=== PATIENT | female | born 1935 | race Caucasian/White ===

== ENCOUNTER 2016-12-15 06:16 | Inpatient (IN) | payer MEDICARE, BC ==
[2016-12-15] MEDS ORDERED: Albuterol/Ipratropium 3.0-0.5 MG/3 ML Neb Soln NEB ONE (07:29)
[2016-12-15] MEDS ORDERED: methylPREDNISolone Sodium Succinate 125 MG/2 ML SDV IVPUSH ONE (07:30)
[2016-12-15] MEDS: Sodium Chloride 0.9% 10 ML Syringe FLUSH PRN ×4 (07:34→13:30)
--- NOTE | 2016-12-15 07:34 | EDM.PDOC ---
ED HPI GENERAL MEDICAL PROBLEM - General Chief Complaint: Respiratory Problem Stated Complaint: SOB Time Seen by Provider: 12/15/16 07:00 Source of Information: Reports: Patient, Family History Limitations: Reports: Physical Impairment, Respiratory Distress - History of Present Illness INITIAL COMMENTS - FREE TEXT/NARRATIVE: 81 years old w f with multiple medical issues including CHF, afib and COPD came to the ed by EMS due to worsening if SOB. Pt can usually walk 2 blocks but today only 1/2 block. She is talking full word sentences. No CP, No N/V. Pt has gen abd. discomfort as well, which is new. No trauma. Pt is on Lasix and coumadin. BP 157/47. Puls 94, Pulse ox 94 on RA. Pt denies other acute medical issues. 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, Oxygen - Related Data Allergies Allergy/AdvReac Type Severity Reaction Status Date / Time ciprofloxacin Allergy Cannot Verified 12/15/16 11:20 Remember cortisone [Cortisone] Allergy Cannot Verified 12/15/16 11:20 Remember fenofibrate nanocrystallized Allergy Cannot Verified 12/15/16 11:20 [From Tricor] Remember fenofibrate,micronized Allergy Cannot Verified 12/15/16 11:20 [From Tricor] Remember levofloxacin [From Levaquin] Allergy Cannot Verified 12/15/16 11:20 Remember lisinopril Allergy Hives Verified 12/15/16 11:20 morphine Allergy Disorientat Verified 12/15/16 11:20 ion niacin Allergy Cannot Verified 12/15/16 11:20 Remember Penicillins Allergy Cannot Verified 12/15/16 11:20 Remember quinapril HCl [From Accupril] Allergy Cannot Verified 12/15/16 11:20 Remember Sulfa (Sulfonamide Allergy Itching Verified 12/15/16 11:20 Antibiotics) zolpidem tartrate Allergy Cannot Verified 12/15/16 11:20 [From Ambien] Remember Home Meds: Home Meds Calcitriol [Rocaltrol] 0.25 mcg PO DAILY 06/24/15 [History] Gabapentin [Neurontin] 100 mg PO BEDTIME 06/24/15 [History] Polyvinyl Alcohol/Povidone [Artificial Tears Drops] 1 drop EYEBOTH QID PRN 06/23 [History] Acetaminophen [Tylenol Extra Strength] 500 mg PO Q4H PRN 09/01/15 [History] Aspirin [Adult Low Dose Aspirin EC] 81 mg PO BEDTIME 09/01/15 [History] Citalopram Hydrobromide [Celexa] 10 mg PO DAILY 09/01/15 [History] Dextrose [Glucose] 12 gram PO Q1H PRN 09/01/15 [History] Ergocalciferol (Vitamin D2) [Vitamin D2] 50,000 units PO Q30D 09/01/15 [History] Insulin Glarg,Human.Rec.Analog [Lantus Solostar] 25 unit SUBCUT BEDTIME [History] Multivit-Min/FA/Lutein/Zeaxant [Macular Vitamin Tablet] 1 tab PO DAILY 09/01/15 [History] Omeprazole 40 mg PO ACBREAKFAST 09/01/15 [History] Simvastatin [Zocor] 20 mg PO DAILY 09/01/15 [History] Vit B Cmplx NO3/Fa/C/Biot/Zinc [Nephplex Rx] 1 tab PO DAILY 09/01/15 [History] amLODIPine [Norvasc] 5 mg PO DAILY 09/01/15 [History] traZODone 50 mg PO BEDTIME 09/01/15 [History] Metolazone 2.5 mg PO BID 09/02/15 [History] Acetaminophen [Tylenol] 650 mg PO Q4H PRN #0 tablet 09/03/15 [Rx] Allopurinol [Zyloprim] 100 mg PO DAILY #90 tablet 09/03/15 [Rx] Furosemide 80 mg PO BID #40 tablet 09/03/15 [Rx] Bimatoprost [Lumigan 0.01% Oph Soln] 1 drop EYEBOTH BEDTIME 12/15/16 [History] Ferrous Sulfate 325 mg PO DAILY 12/15/16 [History] Insulin Aspart [Novolog] 15 unit SQ TIDMEALS 12/15/16 [History] Levothyroxine 112 mcg PO ACBREAKFAST 12/15/16 [History] Potassium Chloride [Klor-Con M20] 20 meq PO TID 12/15/16 [History] Warfarin [Coumadin] 2 mg PO MO 12/15/16 [History] Warfarin [Coumadin] 4 mg PO SUTUWETHFRSA 12/15/16 [History] Past Medical History HEENT History: Reports: Cataract, Glaucoma Cardiovascular History: Reports: Heart Failure, High Cholesterol, CA, SOB on Exertion Respiratory History: Reports: COPD Gastrointestinal History: Reports: Cholelithiasis Genitourinary History: Reports: Chronic Renal Insuffiency, Diabetic Nephropathy MANAGER PAID History: Reports: Musculoskeletal History: Reports: Back Pain, Chronic Neurological History: Reports: CVA Psychiatric History: Reports: Depression Endocrine/Metabolic History: Reports: Diabetes, Type II, Hypoparathyroidism, Hypothyroidism Hematologic History: Reports: Blood Transfusion(s) - Infectious Disease History Infectious Disease History: Reports: Chicken Pox, Measles, Mumps, Pertussis ( Whooping Cough), Shingles, Other (See Below) Other Infectious Disease History: infectious hepatitis many years ago - Past Surgical History HEENT Surgical History: Reports: Cataract Surgery Cardiovascular Surgical History: Reports: Coronary Artery Bypass GI Surgical History: Reports: Appendectomy, Cholecystectomy Social & Family History - Family History HEENT: Reports: Impaired Vision Cardiac: Reports: Heart Failure, CA, SOB on Exertion GI: Reports: Cholelithiasis OBGYN: Reports: Neurological: Reports: CVA Psychiatric: Reports: Anxiety Endocrine/Metabolic: Reports: Diabetes, type II Oncologic: Reports: Colon, Other (See Below) Other Oncologic Family History: melanoma - Tobacco Use Smoking Status *Q: Never Smoker Years of Tobacco use: 20 Packs/Tins Daily: 0.5 Used Tobacco, but Quit: Yes Month Tobacco Last Used: Apr Second Hand Smoke Exposure: Yes - Caffeine Use Caffeine Use: Reports: Coffee - Alcohol Use Days Per Week of Alcohol Use: 0 - Recreational Drug Use Recreational Drug Use: No ED ROS GENERAL - Review of Systems Review Of Systems: See Below Constitutional: Reports: Weakness, Decreased Appetite, Weight Gain HEENT: Reports: No Symptoms Respiratory: Reports: Shortness of Breath Cardiovascular: Reports: Dyspnea on Exertion, Edema Endocrine: Reports: No Symptoms GI/Abdominal: Reports: Abdominal Pain (generalized) : Reports: No Symptoms Musculoskeletal: Reports: No Symptoms Skin: Reports: No Symptoms Neurological: Reports: Difficulty Walking Psychiatric: Reports: No Symptoms Hematologic/Lymphatic: Reports: No Symptoms Immunologic: Reports: No Symptoms ED EXAM, GENERAL - Physical Exam Exam: See Below Eye Exam: Right Eye: Other (periorbital cellulitis), Bilateral Eye: Normal Inspection Ears: Normal External Exam Ear Exam: Bilateral Ear: Auricle Normal Nose: Normal Inspection, Normal Mucosa, No Blood Throat/Mouth: Normal Inspection Head: Atraumatic, Normocephalic Neck: Normal Inspection, Supple Respiratory/Chest: Respiratory Distress, Decreased Breath Sounds, Crackles, Rhonchi, Prolonged Expiration Cardiovascular: Irregularly Irregular (rate controlled) Peripheral Pulses: 1+: Femoral (L), Femoral (R) GI/Abdominal: Tender (generalize) (Female) Exam: Deferred Rectal (Female) Exam: Deferred Back Exam: Normal Inspection Extremities: Pedal Edema, Slow Capillary Refill Neurological: Alert, Oriented, CN II-XII Intact, Normal Cognition Psychiatric: Normal Affect, Normal Mood Skin Exam: Pallor Lymphatic: No Adenopathy EKG INTERPRETATION EKG Date: 12/15/16 Time: 07:20 Rhythm: A-Fib [place]: Normal P-Wave: Absent QRS: Normal ST-T: Normal QT: Normal Comparison: No Change Course - Vital Signs Text/Narrative:: 81 years old w f with multiple medical issues including CHF, afib and COPD came to the ed by EMS due to worsening if SOB. Pt can usually walk 2 blocks but today only 1/2 block. She is talking full word sentences. No CP, No N/V. Pt has gen abd. discomfort as well, which is new. No trauma. Pt is on Lasix and coumadin. BP 157/47. Puls 94, Pulse ox 94 on RA. Pt denies other acute medical issues. family friend is present as per daughter, pt is DNR PE: Weak appearing WF, pale, crackles LLL of lung, S3, gen abdominal discomfort to palpation. Labs; BNP 350, INR 1.91 NL WBC Imaging: CXR CHF/COPD official report is pending ImpressionL: COPD, CHF (Pneumonia?) [place]; Lasix, Duoneb, Solumedrol Reexam: Improved Plan: Admit to ray m/s tele. Last Recorded V/S: Last Vital Signs Temp 36.7 C 12/15/16 19:30 Pulse 62 12/15/16 19:30 Resp 17 08/23/17 19:30 BP 135/61 12/15/16 19:30 Pulse Ox 94 L 12/15/16 19:30 - Orders/Labs/Meds Orders: Active Orders 24 hr Category Date Time Status Bedrest Bedside Commode [RC] ASDIRECTED Care 12/15/16 09:29 Active Oxygen Therapy [RC] PRN Care 12/15/16 09:29 Active RT Aerosol Therapy [RC] ASDIRECTED Care 12/15/16 07:30 Active Vital Signs [RC] Q4H Care 12/15/16 09:29 Active Sodium Chloride 0.9% [Saline Flush] Med 12/15/16 06:42 Active 10 ml FLUSH ASDIRECTED PRN Saline Lock Insert [OM.PC] Routine Oth 12/15/16 06:42 Ordered EKG 12 Lead [EK] Routine Ther 12/15/16 07:15 Ordered Medication Orders Acetaminophen (Tylenol Extra Strength) 500 mg PO Q4H PRN PRN Reason: Pain Albuterol (Proventil Neb Soln) 2.5 mg INH Q4H PRN PRN Reason: SHORTNESS OF BREATH Allopurinol (Zyloprim) 100 mg PO DAILY [facility] Last Admin: 12/15/16 12:06 Dose: 100 mg Amlodipine Besylate (Norvasc) 5 mg PO DAILY [facility] Last Admin: 12/15/16 12:07 Dose: 5 mg Artificial Tears (Liquitears 1.4% Ophth Soln) 0 ml EYEBOTH QID PRN PRN Reason: Dry Eyes Aspirin (Halfprin) 81 mg PO BEDTIME [facility] Last Admin: 12/15/16 20:14 Dose: 81 mg Bimatoprost (Lumigan 0.01% Ophth Soln) 0 ml EYEBOTH BEDTIME [facility] Last Admin: 12/15/16 20:18 Dose: Not Given Calcitriol (Rocaltrol) 0.25 mcg PO DAILY [facility] Last Admin: 12/15/16 12:19 Dose: 0.25 mcg Citalopram Hydrobromide (Celexa) 10 mg PO DAILY [facility] Last Admin: 12/15/16 12:07 Dose: 10 mg Dextrose (Glutose 15) 15 gm PO Q1H PRN PRN Reason: low blood sugar Ergocalciferol (Vitamin D2) 50,000 units PO Q30D [facility] Ferrous Sulfate (Ferrous Sulfate) 325 mg PO DAILY [facility] Last Admin: 12/15/16 12:07 Dose: 325 mg Furosemide (Lasix) 80 mg PO BIDDIURETIC [facility] Last Admin: 12/15/16 14:38 Dose: 80 mg Gabapentin (Neurontin) 100 mg PO BEDTIME [facility] Last Admin: 12/15/16 20:15 Dose: 100 mg Azithromycin 500 mg/ Sodium (Chloride) 250 mls @ 250 mls/hr IV Q24H [facility] Last Admin: 12/15/16 12:09 Dose: 250 mls/hr Ceftriaxone Sodium 1,000 mg/ (Sodium Chloride) 50 mls @ 100 mls/hr IV Q24H [facility] Last Admin: 12/15/16 11:15 Dose: 100 mls/hr Insulin Aspart (Novolog) 0 unit SUBCUT TIDMEALS [facility] PRN Reason: Protocol Last Admin: 12/15/16 18:40 Dose: 15 units Insulin Detemir (Levemir) 25 unit SUBCUT BEDTIME [facility] Last Admin: 12/15/16 22:28 Dose: 25 units Latanoprost (Xalatan 0.005% Ophth Soln) 0 ml EYEBOTH BEDTIME [facility] Last Admin: 12/15/16 20:17 Dose: 1 drop Levothyroxine Sodium (Levothyroxine) 112 mcg PO DAILY@0600 [facility] Metolazone (Zaroxolyn) 2.5 mg PO DAILY@0800 [facility] Last Admin: 12/15/16 13:43 Dose: 2.5 mg Multivit/Ca Carb/B Cmplx/FA/Prenat (Renal Caps Softgel) 1 cap PO DAILY [facility] Last Admin: 12/15/16 12:08 Dose: 1 cap Pantoprazole Sodium (Protonix) 40 mg PO 0600 [facility] Potassium Chloride (Klor-Con M20) 20 meq PO TID [facility] Last Admin: 12/15/16 20:15 Dose: 20 meq Admin: 12/15/16 13:44 Dose: 20 meq Simvastatin (Zocor) 20 mg PO DAILY [facility] Sodium Chloride (Saline Flush) 10 ml FLUSH ASDIRECTED PRN PRN Reason: Keep Vein Open Last Admin: 12/15/16 13:30 Dose: 10 ml Admin: 12/15/16 09:16 Dose: 10 ml Admin: 12/15/16 07:43 Dose: 10 ml Admin: 12/15/16 07:34 Dose: 10 ml Sodium Chloride (Saline Flush) 10 ml FLUSH ASDIRECTED PRN PRN Reason: Keep Vein Open Trazodone HCl (Trazodone) 50 mg PO BEDTIME [facility] Last Admin: 12/15/16 20:15 Dose: 50 mg Vit C/Vit E/Zinc/Copper/Lutein (Ocuvite Lutein) 1 each PO DAILY [facility] Warfarin Sodium (Coumadin) 2 mg PO MO [facility] Warfarin Sodium (Coumadin) 4 mg PO SUTUWETHFRSA [facility] Last Admin: 12/15/16 17:05 Dose: 4 mg Warfarin Sodium (Coumadin Sliding Scale) 1 each PO ASDIRECTED [facility] Labs: Laboratory Tests 12/15/16 12/15/16 12/15/16 Range/Units 07:25 07:25 07:25 WBC 9.1 (4.5-12.0) X10-3/uL RBC 4.47 (3.23-5.20) x10(6)uL Hgb 9.3 L (11.5-15.5) g/dL Hct 30.5 (30.0-51.3) % MCV 68.3 L (80-96) fL MCH 20.9 L (27.7-33.6) pg MCHC 30.5 L (32.2-35.4) g/dL RDW 20.9 H (11.5-15.5) % Plt Count 231 (125-369) X10(3)uL MPV 7.2 L (7.4-10.4) fL Add Manual Diff Yes Neutrophils % (Manual) 87 H (46-82) % Lymphocytes % (Manual) 6 L (13-37) % Monocytes % (Manual) 5 (4-12) % Eosinophils % (Manual) 1 (0-5) % Basophils % (Manual) 1 (0-2) % Hypochromasia Few Anisocytosis Moderate H Microcytosis Moderate H PT 20.2 H (8.7-11.1) INR 1.97 H (0.89-1.13) Sodium 136 (135-145) mmol/L Potassium 3.4 L D (3.5-5.3) mmol/L Chloride 98 L D (100-110) mmol/L Carbon Dioxide 28 (23-29) mmol/L BUN 50 H D (8-23) mg/dL Creatinine 1.3 (0.6-1.3) mg/dL Est Cr Clr Drug Dosing 29.31 mL/min Estimated GFR (MDRD) 39 L (>60) BUN/Creatinine Ratio 38.5 H (9-20) Glucose 187 H (80-116) mg/dL Calcium 9.0 (8.6-10.2) mg/dL Total Bilirubin 0.8 (0.1-1.3) mg/dL AST 22 (5-27) IU/L ALT 10 L D (14-26) IU/L Alkaline Phosphatase 75 (56-112) IU/L Troponin I (0.02-0.06) NG/ML B-Natriuretic Peptide (0-100) pg/mL Total Protein 6.2 (6.0-8.0) g/dL Albumin 3.1 L (3.2-4.6) g/dL Globulin 3.1 g/dL Albumin/Globulin Ratio 1.0 Urine Color (YELLOW) Urine Appearance (CLEAR) Urine pH (5.0-6.5) Ur Specific [place] (1.010-1.025) Urine Protein (NEGATIVE) mg/dL Urine Glucose (UA) (NEGATIVE) mg/dL Urine Ketones (NEGATIVE) mg/dL Urine Occult Blood (NEGATIVE) Urine Nitrite (NEGATIVE) Urine Bilirubin (NEGATIVE) Urine Urobilinogen (NEGATIVE) mg/dL Ur Leukocyte Esterase (NEGATIVE) Urine RBC (0) Urine WBC (0) Ur Squamous Epith Cells (NS,R,O) Urine Bacteria (NS) 12/15/16 12/15/16 12/15/16 Range/Units 07:25 07:25 08:05 WBC (4.5-12.0) X10-3/uL RBC (3.23-5.20) x10(6)uL Hgb (11.5-15.5) g/dL Hct (30.0-51.3) % MCV (80-96) fL MCH (27.7-33.6) pg MCHC (32.2-35.4) g/dL RDW (11.5-15.5) % Plt Count (125-369) X10(3)uL MPV (7.4-10.4) fL Add Manual Diff Neutrophils % (Manual) (46-82) % Lymphocytes % (Manual) (13-37) % Monocytes % (Manual) (4-12) % Eosinophils % (Manual) (0-5) % Basophils % (Manual) (0-2) % Hypochromasia Anisocytosis Microcytosis PT (8.7-11.1) INR (0.89-1.13) Sodium (135-145) mmol/L Potassium (3.5-5.3) mmol/L Chloride (100-110) mmol/L Carbon Dioxide (23-29) mmol/L BUN (8-23) mg/dL Creatinine (0.6-1.3) mg/dL Est Cr Clr Drug Dosing mL/min Estimated GFR (MDRD) (>60) BUN/Creatinine Ratio (9-20) Glucose (80-116) mg/dL Calcium (8.6-10.2) mg/dL Total Bilirubin (0.1-1.3) mg/dL AST (5-27) IU/L ALT (14-26) IU/L Alkaline Phosphatase (56-112) IU/L Troponin I < 0.01 L (0.02-0.06) NG/ML B-Natriuretic Peptide 350 H (0-100) pg/mL Total Protein (6.0-8.0) g/dL Albumin (3.2-4.6) g/dL Globulin g/dL Albumin/Globulin Ratio Urine Color Yellow (YELLOW) Urine Appearance Clear (CLEAR) Urine pH 6.0 (5.0-6.5) Ur Specific [place] 1.010 (1.010-1.025) Urine Protein Negative (NEGATIVE) mg/dL Urine Glucose (UA) Normal (NEGATIVE) mg/dL Urine Ketones Negative (NEGATIVE) mg/dL Urine Occult Blood Negative (NEGATIVE) Urine Nitrite Negative (NEGATIVE) Urine Bilirubin Negative (NEGATIVE) Urine Urobilinogen Normal (NEGATIVE) mg/dL Ur Leukocyte Esterase Negative (NEGATIVE) Urine RBC 0-5 (0) Urine WBC 5-10 (0) Ur Squamous Epith Cells Rare (NS,R,O) Urine Bacteria Not seen (NS) Meds: Medications Generic Name Dose Route Start Last Admin Trade Name Freq PRN Reason Stop Dose Admin Acetaminophen 500 mg 12/15/16 10:00 Tylenol Extra Strength PO Q4H PRN Pain Albuterol 2.5 mg 12/15/16 13:00 Proventil Neb Soln INH Q4H PRN SHORTNESS OF BREATH Allopurinol 100 mg 12/15/16 09:00 12/15/16 12:06 Zyloprim PO 100 mg DAILY [facility] Administration Amlodipine Besylate 5 mg 12/15/16 11:00 12/15/16 12:07 Norvasc PO 5 mg DAILY [facility] Administration Artificial Tears 0 ml 12/15/16 10:00 Liquitears 1.4% Oph Soln EYEBOTH QID PRN Dry Eyes Aspirin 81 mg 12/15/16 21:00 12/15/16 20:14 Halfprin PO 81 mg BEDTIME [facility] Administration Bimatoprost 0 ml 12/15/16 21:00 12/15/16 20:18 Lumigan 0.01% Ophth Soln EYEBOTH Not Given BEDTIME [facility] Calcitriol 0.25 mcg 12/15/16 11:00 12/15/16 12:19 Rocaltrol PO 0.25 mcg DAILY [facility] Administration Citalopram Hydrobromide 10 mg 12/15/16 11:00 12/15/16 12:07 Celexa PO 10 mg DAILY [facility] Administration Dextrose 15 gm 12/15/16 10:00 Glutose 15 PO Q1H PRN low blood sugar Ergocalciferol 50,000 units 12/26/16 08:00 Vitamin D2 PO Q30D [facility] Ferrous Sulfate 325 mg 12/15/16 11:00 12/15/16 12:07 Ferrous Sulfate PO 325 mg DAILY [facility] Administration Furosemide 80 mg 12/15/16 14:00 12/15/16 14:38 Lasix PO 80 mg BIDDIURETIC [facility] Administration Gabapentin 100 mg 12/15/16 21:00 12/15/16 20:15 Neurontin PO 100 mg BEDTIME [facility] Administration Azithromycin 500 mg/ Sodium 250 mls @ 250 mls/hr 12/15/16 12:00 12/15/16 12: 09 Chloride IV 250 mls/hr Q24H [facility] Administration Ceftriaxone Sodium 1,000 mg/ 50 mls @ 100 mls/hr 12/15/16 10:00 12/15/16 11: 15 Sodium Chloride IV 100 mls/hr Q24H [facility] Administration Insulin Aspart 0 unit 12/15/16 18:00 12/15/16 18:40 Novolog SUBCUT 15 units TIDMEALS [facility] Administration Protocol Insulin Detemir 25 unit 12/15/16 21:00 12/15/16 22:28 Levemir SUBCUT 25 units BEDTIME [facility] Administration Latanoprost 0 ml 12/15/16 21:00 12/15/16 20:17 Xalatan 0.005% Ophth Soln EYEBOTH 1 drop BEDTIME [facility] Administration Levothyroxine Sodium 112 mcg 12/16/16 06:00 Levothyroxine PO DAILY@0600 [facility] Metolazone 2.5 mg 12/15/16 13:30 12/15/16 13:43 Zaroxolyn PO 2.5 mg DAILY@0800 [facility] Administration Multivit/Ca Carb/B Cmplx/FA/Prenat 1 cap 12/15/16 11:15 12/15/16 12:08 Renal Caps Softgel PO 1 cap DAILY [facility] Administration Pantoprazole Sodium 40 mg 12/16/16 06:00 Protonix PO 0600 [facility] Potassium Chloride 20 meq 12/15/16 14:00 12/15/16 20:15 Klor-Con M20 PO 20 meq TID [facility] Administration Simvastatin 20 mg 12/16/16 09:00 Zocor PO DAILY [facility] Sodium Chloride 10 ml 12/15/16 06:42 12/15/16 13:30 Saline Flush FLUSH 10 ml ASDIRECTED PRN Administration Keep Vein Open Sodium Chloride 10 ml 12/15/16 09:56 Saline Flush FLUSH ASDIRECTED PRN Keep Vein Open Trazodone HCl 50 mg 12/15/16 21:00 12/15/16 20:15 Trazodone PO 50 mg BEDTIME [facility] Administration Vit C/Vit E/Zinc/Copper/Lutein 1 each 12/16/16 09:00 Ocuvite Lutein PO DAILY [facility] Warfarin Sodium 2 mg 12/20/16 16:00 Coumadin PO MO [facility] Warfarin Sodium 4 mg 12/15/16 16:00 12/15/16 17:05 Coumadin PO 4 mg SUTUWETHFRSA [facility] Administration Warfarin Sodium 1 each 12/15/16 15:45 Coumadin Sliding Scale PO ASDIRECTED [facility] Discontinued Medications Generic Name Dose Route Start Last Admin Trade Name Freq PRN Reason Stop Dose Admin Albuterol Confirm 12/15/16 13:12 12/15/16 13:18 Proventil Neb Soln Administered 12/15/16 13:13 2.5 mg Dose Administration 2.5 mg .ROUTE .STK-MED ONE Albuterol/Ipratropium 3 ml 12/15/16 07:29 12/15/16 07:41 Duoneb 3.0-0.5 Mg/3 Ml NEB 12/15/16 07:30 3 ml ONETIME ONE Administration Furosemide 20 mg 12/15/16 09:09 12/15/16 09:16 Lasix IVPUSH 12/15/16 09:10 20 mg NOW ONE Administration Insulin Aspart 0 unit 12/15/16 21:43 12/15/16 21:58 Novolog SUBCUT 12/15/16 21:44 10 units ONETIME ONE Administration Levothyroxine Sodium 112 mcg 12/15/16 11:15 12/15/16 12:08 Levothyroxine PO 112 mcg ACBREAKFAST [facility] Administration Levothyroxine Sodium 112 mcg 12/16/16 07:30 Levothyroxine PO ACBREAKFAST [facility] Methylprednisolone Sodium Succinate 125 mg 12/15/16 07:30 12/15/16 07:43 Solu-Medrol IVPUSH 12/15/16 07:31 125 mg ONETIME ONE Administration Methylprednisolone Sodium Succinate Confirm 12/15/16 07:37 12/15/16 07:43 Solu-Medrol Administered 12/15/16 07:38 Not Given Dose 125 mg .ROUTE .STK-MED ONE Potassium Chloride 20 meq 12/15/16 21:00 Klor-Con M20 PO TID [facility] Departure - Departure Time of Disposition: 09:45 Disposition: Admitted As Inpatient 66 Condition: Fair Clinical Impression: CHF (congestive heart failure) - Discharge Information - My Orders Last 24 Hours: My Active Orders 12/15/16 07:15 EKG 12 Lead [EK] Routine 12/15/16 07:30 RT Aerosol Therapy [RC] ASDIRECTED 12/15/16 09:29 Bedrest Bedside Commode [RC] ASDIRECTED Oxygen Therapy [RC] PRN Vital Signs [RC] Q4H - Assessment/Plan Last 24 Hours: My Active Orders 12/15/16 07:15 EKG 12 Lead [EK] Routine 12/15/16 07:30 RT Aerosol Therapy [RC] ASDIRECTED 12/15/16 09:29 Bedrest Bedside Commode [RC] ASDIRECTED Oxygen Therapy [RC] PRN Vital Signs [RC] Q4H
[2016-12-15] MEDS ORDERED: methylPREDNISolone Sodium Succinate 125 MG/2 ML SDV ONE (07:37)
[2016-12-15] MEDS ORDERED: Furosemide 40 MG/4 ML VIAL IVPUSH ONE (09:09)
[2016-12-15] MEDS ORDERED: Polyvinyl Alcohol 1.4% Ophth Soln 15 ML Bottle EYEBOTH PRN (10:00)
[2016-12-15] MEDS ORDERED: Acetaminophen 500 MG Tab PO PRN (10:00)
[2016-12-15] MEDS ORDERED: Glucose Gel 15 GM in 37.5 GM Tube PO PRN (10:00)
--- NOTE | 2016-12-15 10:54 | CR ---
INDICATION: Short of breath. CHEST: An AP upright view of the chest was obtained on a cart, 12/15/2016, and was compared with 09/01/2015 and 07/07/2015, again revealing parenchymal changes and pleural changes at the left lung base and now in the left mid lung field, compatible with pneumonia and pleuritis. Additional pneumonia and pleuritis, although much less prominent, is noted in the right upper lobe in the right mid lung field, with thickening of the minor fissure. A mild degree of hyperaeration raises the question of COPD. Additionally, there is some mild prominence of upper lung field pulmonary vasculature, with prominent heart and evidence of median sternotomy. A mild or mild chronic or early CHF may be present. IMPRESSION: 1. Bilateral pneumonia and pleuritis, left much greater than right. 2. Possible mild or early CHF or mild chronic CHF in a patient with ASHD and cardiomegaly. 3. Probable COPD. MTDD
[2016-12-15] MEDS: cefTRIAXone 1,000 MG in Sodium Chloride 0.9% 50 ML IV SCH ×2 (10:58→11:15)
[2016-12-15] MEDS ORDERED: Levothyroxine 112 MCG Tab PO SCH (11:15)
--- NOTE | 2016-12-15 11:53 | CR ---
INDICATION: Short of breath. CHEST: PA and lateral views of the chest, 12/15/2016, were compared with previous studies of 12/15/2016 and 09/01/2015, and revealed bibasilar pleuroparenchymal changes, much more prominently on the left than right, with minimal infiltrate in the right upper lobe also noted. Findings are compatible with pneumonia and pleuritis, much more severe on the left and apparently recurrent. The heart is enlarged with tortuous calcified aorta and evidence of median sternotomy. Findings compatible with COPD and osteoporosis are also noted with somewhat demineralized appearance of the bony structures. Bridging hyperostotic change is noted at an upper middle thoracic vertebral body. Upper lung field pulmonary vasculature is mildly prominent, compatible with a mild or early CHF or possibly a mild chronic CHF. IMPRESSION: 1. Overall very similar appearance to previous examination of 09/01/2015, compatible with bibasilar pneumonia and pleuritis. A degree of fibrosis could also be present. 2. ASHD, cardiomegaly, previous median sternotomy with mild or mild chronic CHF. 3. Probable osteoporosis. 4. Probable COPD. MTDD
[2016-12-15] MEDS: Allopurinol 100 MG Tab PO SCH (12:06)
[2016-12-15] MEDS: Citalopram 10 MG Tab PO SCH (12:07)
[2016-12-15] MEDS: amLODIPine 5 MG Tab PO SCH (12:07)
[2016-12-15] MEDS: Ferrous Sulfate 325 MG Tab PO SCH (12:07)
[2016-12-15] MEDS: Folic Acid/Vitamin B Complex With C Cap PO SCH (12:08)
[2016-12-15] MEDS: Azithromycin 500 MG in Sodium Chloride 0.9% 250 ML IV SCH (12:09)
[2016-12-15] MEDS: Calcitriol 0.25 MCG Cap PO SCH (12:19)
[2016-12-15] MEDS ORDERED: Albuterol 0.083% 2.5 MG/3 ML Neb Soln INH PRN (13:00)
[2016-12-15] MEDS ORDERED: Albuterol 0.083% 2.5 MG/3 ML Neb Soln ONE (13:12)
[2016-12-15] MEDS: Metolazone 2.5 MG Tab PO SCH (13:43)
[2016-12-15] MEDS: Potassium Chloride 20 MEQ Tab.ER PO SCH ×2 (13:44→20:15)
[2016-12-15] MEDS: Furosemide 80 MG Tab PO SCH (14:38)
[2016-12-15] MEDS ORDERED: Warfarin Sliding Scale PO SCH (15:45)
[2016-12-15] MEDS: Warfarin 4 MG Tab PO SCH (17:05)
--- NOTE | 2016-12-15 17:46 | PCM.HP ---
H&P History of Present Illness - General Date of Service: 12/15/16 Admit Problem/Dx: Admission Diagnosis/Problem Admission Diagnosis/Problem Pneumonia Source of Information: Patient History Limitations: Reports: No Limitations - History of Present Illness Initial Comments - Free Text/Narative: Is a 81-year-old female patient started feeling short of breath yesterday. By 3 AM she was really short of breath and came in to the ER. She states she did have some orthopnea. She coughed once when she was here and felt better afterwards. She's felt some chills and fevers. She has a history of CHF. She states she checks her weights every day and they've been constant. At 177 pounds. She does not have any ankle swelling. She denies chest pain. She has no history of COPD. Although she smoked years ago. - Related Data Allergies/Adverse Reactions: Allergies Allergy/AdvReac Type Severity Reaction Status Date / Time ciprofloxacin Allergy Cannot Verified 12/15/16 11:20 Remember cortisone [Cortisone] Allergy Cannot Verified 12/15/16 11:20 Remember fenofibrate nanocrystallized Allergy Cannot Verified 12/15/16 11:20 [From Tricor] Remember fenofibrate,micronized Allergy Cannot Verified 12/15/16 11:20 [From Tricor] Remember levofloxacin [From Levaquin] Allergy Cannot Verified 12/15/16 11:20 Remember lisinopril Allergy Hives Verified 12/15/16 11:20 morphine Allergy Disorientat Verified 12/15/16 11:20 ion niacin Allergy Cannot Verified 12/15/16 11:20 Remember Penicillins Allergy Cannot Verified 12/15/16 11:20 Remember quinapril HCl [From Accupril] Allergy Cannot Verified 12/15/16 11:20 Remember Sulfa (Sulfonamide Allergy Itching Verified 12/15/16 11:20 Antibiotics) zolpidem tartrate Allergy Cannot Verified 12/15/16 11:20 [From Ambien] Remember Home Medications: Home Meds Calcitriol [Rocaltrol] 0.25 mcg PO DAILY 06/24/15 [History] Gabapentin [Neurontin] 100 mg PO BEDTIME 06/24/15 [History] Polyvinyl Alcohol/Povidone [Artificial Tears Drops] 1 drop EYEBOTH QID PRN 06/23 [History] Acetaminophen [Tylenol Extra Strength] 500 mg PO Q4H PRN 09/01/15 [History] Aspirin [Adult Low Dose Aspirin EC] 81 mg PO BEDTIME 09/01/15 [History] Citalopram Hydrobromide [Celexa] 10 mg PO DAILY 09/01/15 [History] Dextrose [Glucose] 12 gram PO Q1H PRN 09/01/15 [History] Ergocalciferol (Vitamin D2) [Vitamin D2] 50,000 units PO Q30D 09/01/15 [History] Insulin Glarg,Human.Rec.Analog [Lantus Solostar] 25 unit SUBCUT BEDTIME [History] Multivit-Min/FA/Lutein/Zeaxant [Macular Vitamin Tablet] 1 tab PO DAILY 09/01/15 [History] Omeprazole 40 mg PO ACBREAKFAST 09/01/15 [History] Simvastatin [Zocor] 20 mg PO DAILY 09/01/15 [History] Vit B Cmplx NO3/Fa/C/Biot/Zinc [Nephplex Rx] 1 tab PO DAILY 09/01/15 [History] amLODIPine [Norvasc] 5 mg PO DAILY 09/01/15 [History] traZODone 50 mg PO BEDTIME 09/01/15 [History] Metolazone 2.5 mg PO BID 09/02/15 [History] Acetaminophen [Tylenol] 650 mg PO Q4H PRN #0 tablet 09/03/15 [Rx] Allopurinol [Zyloprim] 100 mg PO DAILY #90 tablet 09/03/15 [Rx] Furosemide 80 mg PO BID #40 tablet 09/03/15 [Rx] Bimatoprost [Lumigan 0.01% Ophth Soln] 1 drop EYEBOTH BEDTIME 12/15/16 [History] Ferrous Sulfate 325 mg PO DAILY 12/15/16 [History] Insulin Aspart [Novolog] 15 unit SQ TIDMEALS 12/15/16 [History] Levothyroxine 112 mcg PO ACBREAKFAST 12/15/16 [History] Potassium Chloride [Klor-Con M20] 20 meq PO TID 12/15/16 [History] Warfarin [Coumadin] 2 mg PO MO 12/15/16 [History] Warfarin [Coumadin] 4 mg PO SUTUWETHFRSA 12/15/16 [History] Past Medical History HEENT History: Reports: Cataract, Glaucoma Cardiovascular History: Reports: Heart Failure, High Cholesterol, SC, SOB on Exertion Respiratory History: Reports: COPD Gastrointestinal History: Reports: Cholelithiasis Genitourinary History: Reports: Chronic Renal Insuffiency, Diabetic Nephropathy 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: Musculoskeletal History: Reports: Back Pain, Chronic Neurological History: Reports: CVA 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 Psychiatric History: Reports: Depression Endocrine/Metabolic History: Reports: Diabetes, Type II, Hypoparathyroidism, Hypothyroidism Hematologic History: Reports: Blood Transfusion(s) - Infectious Disease History Infectious Disease History: Reports: Chicken Pox, Measles, Mumps, Pertussis ( Whooping Cough), Shingles, Other (See Below) Other Infectious Disease History: infectious hepatitis many years ago - Past Surgical History HEENT Surgical History: Reports: Cataract Surgery Cardiovascular Surgical History: Reports: Coronary Artery Bypass GI Surgical History: Reports: Appendectomy, Cholecystectomy Social & Family History - Family History Family Medical History: Noncontributory HEENT: Reports: Impaired Vision Cardiac: Reports: Heart Failure, SC, SOB on Exertion GI: Reports: Cholelithiasis OBGYN: Reports: Neurological: Reports: CVA Psychiatric: Reports: Anxiety Endocrine/Metabolic: Reports: Diabetes, type II Oncologic: Reports: Colon, Other (See Below) Other Oncologic Family History: melanoma - Tobacco Use Smoking Status *Q: Never Smoker Years of Tobacco use: 20 Packs/Tins Daily: 0.5 Used Tobacco, but Quit: Yes Month Tobacco Last Used: Apr Second Hand Smoke Exposure: Yes - Caffeine Use Caffeine Use: Reports: Coffee - Alcohol Use Days Per Week of Alcohol Use: 0 - Recreational Drug Use Recreational Drug Use: No H&P Review of Systems - Review of Systems: Review Of Systems: See Below General: Reports: Fever, Chills, Malaise, Weakness, Fatigue. Denies: Night Sweats, Weight Gain HEENT: Reports: No Symptoms Pulmonary: Reports: Cough. Denies: Wheezing, Pleuritic Chest Pain, Sputum, Hemoptysis Cardiovascular: Reports: No Symptoms Gastrointestinal: Reports: No Symptoms Genitourinary: Reports: No Symptoms Musculoskeletal: Reports: No Symptoms Skin: Reports: No Symptoms Psychiatric: Reports: No Symptoms Neurological: Reports: No Symptoms Hematologic/Lymphatic: Reports: No Symptoms Immunologic: Reports: No Symptoms Exam - Exam Exam: See Below - Vital Signs Vital Signs: Last Vital Signs Temp 99.0 F 12/15/16 16:30 Pulse 75 12/15/16 08:30 Resp 24 H 12/15/16 16:30 BP 134/50 L 12/15/16 16:30 Pulse Ox 94 L 12/15/16 16:30 Weight: 179 lb 12.8 oz - Exam General: Alert, Oriented, Cooperative, Other (Using accessory muscles or respiration.) HEENT: Conjunctiva Clear, Hearing Intact, Posterior Pharynx Clear, TMs Clear Neck: Supple, Trachea Midline, Carotid Bruit (Bilateral) Lungs: Decreased Breath Sounds, Crackles (Bilateral) Cardiovascular: Regular Rate, Regular Rhythm, Normal S1, Normal S2. No: Bradycardia, Tachycardia, Systolic Murmur, Diastolic Murmur GI/Abdominal Exam: Normal Bowel Sounds, Soft, Non-Tender, No Organomegaly, No Distention, No Abnormal Bruit, No Mass Back Exam: Normal Inspection, Full Range of Motion Extremities: Normal Inspection, Normal Range of Motion, Non-Tender, No Pedal Edema Skin: Warm, Dry, Intact Neurological: Normal Speech Neuro Extensive - Mental Status: Alert, Oriented x3, Normal Mood/Affect, Normal Cognition, Memory Intact Neuro Extensive - Motor, Sensory, Reflexes: Normal Gait Psychiatric: Alert, Normal Affect, Normal Mood - Patient Data Lab Results Last 24 hrs: Laboratory Results - last 24 hr 12/15/16 12/15/16 Range/Units 10:15 17:26 POC Glucose > 500 H* (80-116) mg/dL Troponin I 0.01 L (0.02-0.06) NG/ML Result Diagrams: 12/15/16 07:25 12/15/16 07:25 Karri Results Last 24 hrs: Atrial fibrillation *Q Meaningful Use (ADM) - VTE *Q VTE Criteria *Q: - Stroke *Q Stroke Criteria *Q: - AMI *Q AMI Criteria *Q: - Problem List (1) Pneumonia SNOMED Code(s): 107378239 ICD Code: J18.9 - PNEUMONIA, UNSPECIFIED ORGANISM Status: Acute Current Visit: Yes (2) Palliative care patient SNOMED Code(s): 294608095 ICD Code: Z51.5 - ENCOUNTER FOR PALLIATIVE CARE Status: Acute Current Visit: Yes (3) CHF (congestive heart failure) SNOMED Code(s): 67362092 ICD Code: I50.9 - HEART FAILURE, UNSPECIFIED Status: Acute Current Visit : Yes (4) Anticoagulated on warfarin SNOMED Code(s): 93008678, 033865251 ICD Code: Z79.01 - CUSTODIAL (CURRENT) USE OF ANTICOAGULANTS Status: Acute Priority: Low Current Visit: No (5) Chronic a-fib SNOMED Code(s): 009851182 ICD Code: I48.2 - CHRONIC ATRIAL FIBRILLATION Status: Acute Current Visit : No (6) Anemia in chronic kidney disease (CKD) SNOMED Code(s): 673426549 ICD Code: N18.9 - CHRONIC KIDNEY DISEASE, UNSPECIFIED; D63.1 - ANEMIA IN CHRONIC KIDNEY DISEASE Status: Chronic Priority: Low Current Visit: No (7) Carotid artery bruit SNOMED Code(s): 903285132, 610816064 ICD Code: R09.89 - OTH SYMPTOMS AND SIGNS INVOLVING THE CIRC AND RESP SYSTEMS Status: Acute Current Visit: Yes Problem List Initiated/Reviewed/Updated: Yes Orders Last 24hrs: Active Orders 24 hr Category Date Time Status Patient Status [ADT] Routine ADT 12/15/16 09:56 Active Blood Glucose Check, Bedside [RC] QIDACANDBED Care 12/15/16 17:30 Active Cardiac Monitoring [RC] CONTINUOUS Care 12/15/16 09:57 Active Glucose [Blood Glucose Check, Bedside] [RC] QIDACANDBED Care 12/15/16 17:27 Active Height and Weight [RC] 0600 Care 12/15/16 09:56 Active Up With Assistance [RC] ASDIRECTED Care 12/15/16 09:56 Active Vital Signs [RC] Q4H Care 12/15/16 09:56 Active Consult to Respiratory Therapy [Respiratory Care Assess Cons 12/15/16 10:00 Active and Treatment] [CONS] Routine Consistent Carbohydrate Diet [DIET] Diet 12/15/16 Lunch Active CULTURE BLOOD [BC] Urgent Lab 12/15/16 10:15 Received CULTURE BLOOD [BC] Urgent Lab 12/15/16 10:25 Received CULTURE SPUTUM + SMEAR [RM] Stat Lab 12/15/16 09:56 Uncollected INR,PT,PROTHROMBIN TIME [COAG] DAILY Lab 12/16/16 06:30 Ordered Acetaminophen [Tylenol Extra Strength] Med 12/15/16 10:00 Active 500 mg PO Q4H PRN Albuterol [Proventil Neb Soln] Med 12/15/16 13:00 Active 2.5 mg INH Q4H PRN Allopurinol [Zyloprim] Med 12/15/16 09:00 Active 100 mg PO DAILY Aspirin [Halfprin] Med 12/15/16 21:00 Active 81 mg PO BEDTIME Azithromycin [Zithromax] 500 mg Med 12/15/16 12:00 Active Sodium Chloride 0.9% [Normal Saline] 250 ml IV Q24H Calcitriol [Rocaltrol] Med 12/15/16 11:00 Active 0.25 mcg PO DAILY Citalopram [Celexa] Med 12/15/16 11:00 Active 10 mg PO DAILY Dextrose [Glutose 15] Med 12/15/16 10:00 Active 15 gm PO Q1H PRN Ergocalciferol (Vitamin D2) [Vitamin D2] Med 12/26/16 08:00 Active 50,000 units PO Q30D Ferrous Sulfate Med 12/15/16 11:00 Active 325 mg PO DAILY Folic Acid/Vitamin B Comp W-C [Renal Caps Softgel] Med 12/15/16 11:15 Active 1 cap PO DAILY Furosemide [Lasix] Med 12/15/16 14:00 Active 80 mg PO BIDDIURETIC Gabapentin [Neurontin] Med 12/15/16 21:00 Active 100 mg PO BEDTIME Insulin Aspart [NovoLOG] Med 12/15/16 18:00 Active See Protocol SUBCUT TIDMEALS Insulin Detemir [Levemir] Med 12/15/16 21:00 Active 25 unit SUBCUT BEDTIME Latanoprost [Xalatan 0.005% Ophth Soln] Med 12/15/16 21:00 Active 0 ml EYEBOTH BEDTIME Levothyroxine Med 12/15/16 11:15 Active 112 mcg PO ACBREAKFAST Lutein/Min/Vit C/Vit E Acetate [Ocuvite Lutein] Med 12/16/16 09:00 Active 1 each PO DAILY Metolazone [Zaroxolyn] Med 12/15/16 13:30 Active 2.5 mg PO DAILY@0800 Pantoprazole [ProTONIX] Med 12/16/16 06:00 Active 40 mg PO 0600 Polyvinyl Alcohol [LiquiTears 1.4% Ophth Soln] Med 12/15/16 10:00 Active 0 ml EYEBOTH QID PRN Potassium Chloride [Klor-Con M20] Med 12/15/16 14:00 Active 20 meq PO TID Simvastatin [Zocor] Med 12/16/16 09:00 Active 20 mg PO DAILY Sodium Chloride 0.9% [Saline Flush] Med 12/15/16 09:56 Active 10 ml FLUSH ASDIRECTED PRN Warfarin Sliding Scale [Coumadin Sliding Scale] Med 12/15/16 15:45 Pending 1 each PO ASDIRECTED Warfarin [Coumadin] Med 12/20/16 16:00 Active 2 mg PO MO Warfarin [Coumadin] Med 12/15/16 16:00 Active 4 mg PO SUTUWETHFRSA amLODIPine [Norvasc] Med 12/15/16 11:00 Active 5 mg PO DAILY cefTRIAXone [Rocephin] 1,000 mg Med 12/15/16 10:00 Active Sodium Chloride 0.9% [Normal Saline] 50 ml IV Q24H traZODone Med 12/15/16 21:00 Active 50 mg PO BEDTIME Blood Culture x2 Reflex Set [OM.PC] Urgent Oth 12/15/16 09:56 Ordered Peripheral IV Insertion Adult [OM.PC] Routine Oth 12/15/16 09:56 Ordered Sequential Compression Device [OM.PC] Per Unit Routine Oth 12/15/16 09:57 Ordered Resuscitation Status Routine Resus Stat 12/15/16 09:56 Ordered Medication Orders Acetaminophen (Tylenol Extra Strength) 500 mg PO Q4H PRN PRN Reason: Pain Albuterol (Proventil Neb Soln) 2.5 mg INH Q4H PRN PRN Reason: SHORTNESS OF BREATH Allopurinol (Zyloprim) 100 mg PO DAILY [facility] Last Admin: 12/15/16 12:06 Dose: 100 mg Amlodipine Besylate (Norvasc) 5 mg PO DAILY [facility] Last Admin: 12/15/16 12:07 Dose: 5 mg Artificial Tears (Liquitears 1.4% Ophth Soln) 0 ml EYEBOTH QID PRN PRN Reason: Dry Eyes Aspirin (Halfprin) 81 mg PO BEDTIME [facility] Calcitriol (Rocaltrol) 0.25 mcg PO DAILY [facility] Last Admin: 08/23/17 12:19 Dose: 0.25 mcg Citalopram Hydrobromide (Celexa) 10 mg PO DAILY [facility] Last Admin: 12/15/16 12:07 Dose: 10 mg Dextrose (Glutose 15) 15 gm PO Q1H PRN PRN Reason: low blood sugar Ergocalciferol (Vitamin D2) 50,000 units PO Q30D [facility] Ferrous Sulfate (Ferrous Sulfate) 325 mg PO DAILY [facility] Last Admin: 12/15/16 12:07 Dose: 325 mg Furosemide (Lasix) 80 mg PO BIDDIURETIC [facility] Last Admin: 12/15/16 14:38 Dose: 80 mg Gabapentin (Neurontin) 100 mg PO BEDTIME [facility] Azithromycin 500 mg/ Sodium (Chloride) 250 mls @ 250 mls/hr IV Q24H [facility] Last Admin: 12/15/16 12:09 Dose: 250 mls/hr Ceftriaxone Sodium 1,000 mg/ (Sodium Chloride) 50 mls @ 100 mls/hr IV Q24H [facility] Last Admin: 12/15/16 11:15 Dose: 100 mls/hr Insulin Aspart (Novolog) 0 unit SUBCUT TIDMEALS [facility] PRN Reason: Protocol Insulin Detemir (Levemir) 25 unit SUBCUT BEDTIME [facility] Latanoprost (Xalatan 0.005% Ophth Soln) 0 ml EYEBOTH BEDTIME [facility] Levothyroxine Sodium (Levothyroxine) 112 mcg PO ACBREAKFAST [facility] Last Admin: 12/15/16 12:08 Dose: 112 mcg Metolazone (Zaroxolyn) 2.5 mg PO DAILY@0800 [facility] Last Admin: 12/15/16 13:43 Dose: 2.5 mg Multivit/Ca Carb/B Cmplx/FA/Prenat (Renal Caps Softgel) 1 cap PO DAILY [facility] Last Admin: 12/15/16 12:08 Dose: 1 cap Pantoprazole Sodium (Protonix) 40 mg PO 0600 [facility] Potassium Chloride (Klor-Con M20) 20 meq PO TID [facility] Last Admin: 12/15/16 13:44 Dose: 20 meq Simvastatin (Zocor) 20 mg PO DAILY [facility] Sodium Chloride (Saline Flush) 10 ml FLUSH ASDIRECTED PRN PRN Reason: Keep Vein Open Last Admin: 12/15/16 13:30 Dose: 10 ml Admin: 12/15/16 09:16 Dose: 10 ml Admin: 12/15/16 07:43 Dose: 10 ml Admin: 12/15/16 07:34 Dose: 10 ml Sodium Chloride (Saline Flush) 10 ml FLUSH ASDIRECTED PRN PRN Reason: Keep Vein Open Trazodone HCl (Trazodone) 50 mg PO BEDTIME [facility] Vit C/Vit E/Zinc/Copper/Lutein (Ocuvite Lutein) 1 each PO DAILY [facility] Warfarin Sodium (Coumadin) 2 mg PO MO [facility] Warfarin Sodium (Coumadin) 4 mg PO SUTUWETHFRSA [facility] Last Admin: 12/15/16 17:05 Dose: 4 mg Warfarin Sodium (Coumadin Sliding Scale) 1 each PO ASDIRECTED [facility] Assessment/Plan Comment:: 1. Admit to inpatient. 2. Telemetry. 3. Rocephin and Zithromax because of her chronic any failure. 4. She had a portable chest. Order 2 views of the chest. Discussed with radiology and they felt pneumonia. 5. Blood cultures, sputum cultures. 6. INR daily to be managed by pharmacy. 7. Accu-Cheks twice a day hold NovoLog and use long-acting insulin. 8. Continue home medications except her insulin. 9. PT/OT evaluation for strengthening and ambulation. 10. VTE prophylaxis-SCDs and Coumadin.
[2016-12-15] MEDS: Insulin Aspart 100 Units/ML 3 ML Pen SUBCUT SCH (18:40)
[2016-12-15] MEDS: Aspirin 81 MG Tab.EC PO SCH (20:14)
[2016-12-15] MEDS: traZODone 50 MG Tab PO SCH (20:15)
[2016-12-15] MEDS: Gabapentin 100 MG Cap PO SCH (20:15)
[2016-12-15] MEDS: Latanoprost 0.005% Ophth Soln 2.5 ML Bottle EYEBOTH SCH (20:17)
[2016-12-15] MEDS ORDERED: Potassium Chloride 20 MEQ Tab.ER PO SCH (21:00)
[2016-12-15] MEDS ORDERED: Bimatoprost 0.01% Ophth Soln 5 ML Bottle EYEBOTH SCH (21:00)
[2016-12-15] MEDS ORDERED: Insulin Aspart 100 Units/ML 3 ML Pen SUBCUT ONE (21:43)
[2016-12-15] MEDS: Insulin Detemir 100 Units/ML 3 ML Pen SUBCUT SCH (22:28)
[2016-12-16] MEDS ORDERED: Insulin Aspart 100 Units/ML 3 ML Pen SUBCUT ONE (01:34)
[2016-12-16] MEDS ORDERED: Levothyroxine 112 MCG Tab PO SCH (07:30)
[2016-12-16] MEDS: Furosemide 80 MG Tab PO SCH ×2 (08:40→15:26)
[2016-12-16] MEDS: Citalopram 10 MG Tab PO SCH (08:41)
[2016-12-16] MEDS: Ferrous Sulfate 325 MG Tab PO SCH (08:41)
[2016-12-16] MEDS: Metolazone 2.5 MG Tab PO SCH (08:41)
[2016-12-16] MEDS: Potassium Chloride 20 MEQ Tab.ER PO SCH ×3 (08:42→21:26)
[2016-12-16] MEDS: Folic Acid/Vitamin B Complex With C Cap PO SCH (08:42)
[2016-12-16] MEDS: Lutein/Minerals/Vitamin C/Vitamin E Acetate Cap PO SCH (08:42)
[2016-12-16] MEDS: amLODIPine 5 MG Tab PO SCH (08:42)
[2016-12-16] MEDS: Allopurinol 100 MG Tab PO SCH (08:43)
[2016-12-16] MEDS: Simvastatin 20 MG Tab PO SCH (08:43)
[2016-12-16] MEDS: Calcitriol 0.25 MCG Cap PO SCH (08:43)
[2016-12-16] MEDS: Insulin Aspart 100 Units/ML 3 ML Pen SUBCUT SCH ×4 (08:44→18:13)
--- NOTE | 2016-12-16 08:47 | PCM.PN ---
- General Info Date of Service: 12/16/16 Admission Dx/Problem (Free Text): Patient states she feels better today. She has less shortness of breath. She has a cough when she has albuterol nebulizer. She gets short of breath when she walks the bathroom. She denies chest pain or leg swelling. - Patient Data Vitals - Most Recent: Last Vital Signs Temp 98.4 F 12/16/16 00:00 Pulse 65 12/16/16 00:00 Resp 18 12/16/16 00:00 BP 126/57 L 12/16/16 00:00 Pulse Ox 96 12/16/16 00:00 Weight - Most Recent: 179 lb 12.8 oz I&O - Last 24 Hours: Intake & Output 12/15/16 12/16/16 12/16/16 22:59 06:59 14:59 Intake Total 250 Output Total 900 Balance -650 Lab Results Last 24 Hours: Laboratory Results - last 24 hr 12/15/16 12/15/16 12/15/16 Range/Units 10:15 17:26 18:20 Glucose 621 H* D (80-116) mg/dL POC Glucose > 500 H* (80-116) mg/dL Troponin I 0.01 L (0.02-0.06) NG/ML 12/15/16 12/15/16 12/16/16 Range/Units 20:22 20:35 01:22 Glucose 589 H* (80-116) mg/dL POC Glucose > 500 H* 432 H* (80-116) mg/dL Troponin I (0.02-0.06) NG/ML 12/16/16 12/16/16 Range/Units 05:50 07:39 Glucose (80-116) mg/dL POC Glucose 272 H D 252 H (80-116) mg/dL Troponin I (0.02-0.06) NG/ML Med Orders - Current: Current Medications Acetaminophen (Tylenol Extra Strength) 500 mg PO Q4H PRN PRN Reason: Pain Albuterol (Proventil Neb Soln) 2.5 mg INH Q4H PRN PRN Reason: SHORTNESS OF BREATH Allopurinol (Zyloprim) 100 mg PO DAILY [facility] Last Admin: 12/15/16 12:06 Dose: 100 mg Amlodipine Besylate (Norvasc) 5 mg PO DAILY [facility] Last Admin: 12/15/16 12:07 Dose: 5 mg Artificial Tears (Liquitears 1.4% Ophth Soln) 0 ml EYEBOTH QID PRN PRN Reason: Dry Eyes Aspirin (Halfprin) 81 mg PO BEDTIME [facility] Last Admin: 12/15/16 20:14 Dose: 81 mg Bimatoprost (Lumigan 0.01% Ophth Soln) 0 ml EYEBOTH BEDTIME [facility] Last Admin: 12/15/16 20:18 Dose: Not Given Calcitriol (Rocaltrol) 0.25 mcg PO DAILY [facility] Last Admin: 12/15/16 12:19 Dose: 0.25 mcg Citalopram Hydrobromide (Celexa) 10 mg PO DAILY [facility] Last Admin: 12/15/16 12:07 Dose: 10 mg Dextrose (Glutose 15) 15 gm PO Q1H PRN PRN Reason: low blood sugar Ergocalciferol (Vitamin D2) 50,000 units PO Q30D [facility] Ferrous Sulfate (Ferrous Sulfate) 325 mg PO DAILY [facility] Last Admin: 12/15/16 12:07 Dose: 325 mg Furosemide (Lasix) 80 mg PO BIDDIURETIC [facility] Last Admin: 12/15/16 14:38 Dose: 80 mg Gabapentin (Neurontin) 100 mg PO BEDTIME [facility] Last Admin: 12/15/16 20:15 Dose: 100 mg Azithromycin 500 mg/ Sodium (Chloride) 250 mls @ 250 mls/hr IV Q24H [facility] Last Admin: 12/15/16 12:09 Dose: 250 mls/hr Ceftriaxone Sodium 1,000 mg/ (Sodium Chloride) 50 mls @ 100 mls/hr IV Q24H [facility] Last Admin: 12/15/16 11:15 Dose: 100 mls/hr Insulin Aspart (Novolog) 0 unit SUBCUT TIDMEALS [facility] PRN Reason: Protocol Last Admin: 12/15/16 18:40 Dose: 15 units Insulin Detemir (Levemir) 25 unit SUBCUT BEDTIME [facility] Last Admin: 12/15/16 22:28 Dose: 25 units Latanoprost (Xalatan 0.005% Ophth Soln) 0 ml EYEBOTH BEDTIME [facility] Last Admin: 12/15/16 20:17 Dose: 1 drop Levothyroxine Sodium (Levothyroxine) 112 mcg PO DAILY@0600 [facility] Metolazone (Zaroxolyn) 2.5 mg PO DAILY@0800 [facility] Last Admin: 12/15/16 13:43 Dose: 2.5 mg Multivit/Ca Carb/B Cmplx/FA/Prenat (Renal Caps Softgel) 1 cap PO DAILY [facility] Last Admin: 12/15/16 12:08 Dose: 1 cap Pantoprazole Sodium (Protonix) 40 mg PO 0600 [facility] Potassium Chloride (Klor-Con M20) 20 meq PO TID [facility] Last Admin: 12/15/16 20:15 Dose: 20 meq Simvastatin (Zocor) 20 mg PO DAILY [facility] Sodium Chloride (Saline Flush) 10 ml FLUSH ASDIRECTED PRN PRN Reason: Keep Vein Open Trazodone HCl (Trazodone) 50 mg PO BEDTIME [facility] Last Admin: 12/15/16 20:15 Dose: 50 mg Vit C/Vit E/Zinc/Copper/Lutein (Ocuvite Lutein) 1 each PO DAILY [facility] Warfarin Sodium (Coumadin) 2 mg PO MO [facility] Warfarin Sodium (Coumadin) 4 mg PO SUTUWETHFRSA [facility] Last Admin: 12/15/16 17:05 Dose: 4 mg Warfarin Sodium (Coumadin Sliding Scale) 1 each PO ASDIRECTED [facility] Discontinued Medications Albuterol (Proventil Neb Soln) Confirm Administered Dose 2.5 mg .ROUTE .STK-MED ONE Stop: 12/15/16 13:13 Last Admin: 12/15/16 13:18 Dose: 2.5 mg Albuterol/Ipratropium (Duoneb 3.0-0.5 Mg/3 Ml) 3 ml NEB ONETIME ONE Stop: 12/15/16 07:30 Last Admin: 12/15/16 07:41 Dose: 3 ml Furosemide (Lasix) 20 mg IVPUSH NOW ONE Stop: 12/15/16 09:10 Last Admin: 12/15/16 09:16 Dose: 20 mg Insulin Aspart (Novolog) 0 unit SUBCUT ONETIME ONE Stop: 12/15/16 21:44 Last Admin: 12/15/16 21:58 Dose: 10 units Insulin Aspart (Novolog) 0 unit SUBCUT ONETIME ONE Stop: 12/16/16 01:35 Last Admin: 12/16/16 01:52 Dose: 20 units Levothyroxine Sodium (Levothyroxine) 112 mcg PO ACBREAKFAST [facility] Last Admin: 12/15/16 12:08 Dose: 112 mcg Levothyroxine Sodium (Levothyroxine) 112 mcg PO ACBREAKFAST [facility] Methylprednisolone Sodium Succinate (Solu-Medrol) 125 mg IVPUSH ONETIME ONE Stop: 12/15/16 07:31 Last Admin: 12/15/16 07:43 Dose: 125 mg Methylprednisolone Sodium Succinate (Solu-Medrol) Confirm Administered Dose 125 mg .ROUTE .STK-MED ONE Stop: 12/15/16 07:38 Last Admin: 12/15/16 07:43 Dose: Not Given Potassium Chloride (Klor-Con M20) 20 meq PO TID [facility] Sodium Chloride (Saline Flush) 10 ml FLUSH ASDIRECTED PRN PRN Reason: Keep Vein Open Last Admin: 12/15/16 13:30 Dose: 10 ml - Exam General: Alert, Oriented, Cooperative Neck: Supple Lungs: Decreased Breath Sounds, Crackles (Lateral) Cardiovascular: Regular Rhythm, No Murmurs, Irregular Rhythm Extremities: No Pedal Edema Psy/Mental Status: Alert, Normal Affect, Normal Mood - Problem List & Annotations (1) Pneumonia SNOMED Code(s): 494247821 Code(s): J18.9 - PNEUMONIA, UNSPECIFIED ORGANISM Status: Acute Current Visit: Yes (2) Palliative care patient SNOMED Code(s): 069886313 Code(s): Z51.5 - ENCOUNTER FOR PALLIATIVE CARE Status: Acute Current Visit: Yes (3) CHF (congestive heart failure) SNOMED Code(s): 96857491 Code(s): I50.9 - HEART FAILURE, UNSPECIFIED Status: Acute Current Visit: Yes (4) Anticoagulated on warfarin SNOMED Code(s): 89061449, 873069923 Code(s): Z79.01 - INSPECTOR WELDED PARTS (CURRENT) USE OF ANTICOAGULANTS Status: Acute Priority: Low Current Visit: No (5) Chronic a-fib SNOMED Code(s): 139621233 Code(s): I48.2 - CHRONIC ATRIAL FIBRILLATION Status: Acute Current Visit : No (6) Anemia in chronic kidney disease (CKD) SNOMED Code(s): 673252938 Code(s): N18.9 - CHRONIC KIDNEY DISEASE, UNSPECIFIED; D63.1 - ANEMIA IN CHRONIC KIDNEY DISEASE Status: Chronic Priority: Low Current Visit: No (7) Carotid artery bruit SNOMED Code(s): 153269772, 935874788 Code(s): R09.89 - OTH SYMPTOMS AND SIGNS INVOLVING THE CIRC AND RESP SYSTEMS Status: Acute Current Visit: Yes - Problem List Review Problem List Initiated/Reviewed/Updated: Yes - My Orders Last 24 Hours: My Active Orders 12/15/16 09:00 Allopurinol [Zyloprim] 100 mg PO DAILY 12/15/16 09:56 Patient Status [ADT] Routine Height and Weight [RC] 0600 Up With Assistance [RC] ASDIRECTED Vital Signs [RC] Q4H CULTURE SPUTUM + SMEAR [RM] Stat Sodium Chloride 0.9% [Saline Flush] 10 ml FLUSH ASDIRECTED PRN Blood Culture x2 Reflex Set [OM.PC] Urgent Peripheral IV Insertion Adult [OM.PC] Routine Resuscitation Status Routine 12/15/16 09:57 Sequential Compression Device [OM.PC] Per Unit Routine 12/15/16 10:00 Consult to Respiratory Therapy [Respiratory Care Assess and Treatment] [CONS] Routine Acetaminophen [Tylenol Extra Strength] 500 mg PO Q4H PRN Dextrose [Glutose 15] 15 gm PO Q1H PRN Polyvinyl Alcohol [LiquiTears 1.4% Ophth Soln] 0 ml EYEBOTH QID PRN cefTRIAXone [Rocephin] 1,000 mg Sodium Chloride 0.9% [Normal Saline] 50 ml IV Q24H 12/15/16 10:15 CULTURE BLOOD [BC] Urgent 12/15/16 10:25 CULTURE BLOOD [BC] Urgent 12/15/16 11:00 Calcitriol [Rocaltrol] 0.25 mcg PO DAILY Citalopram [Celexa] 10 mg PO DAILY Ferrous Sulfate 325 mg PO DAILY amLODIPine [Norvasc] 5 mg PO DAILY 12/15/16 11:15 Folic Acid/Vitamin B Comp W-C [Renal Caps Softgel] 1 cap PO DAILY 12/15/16 12:00 Azithromycin [Zithromax] 500 mg Sodium Chloride 0.9% [Normal Saline] 250 ml IV Q24H 12/15/16 13:00 Albuterol [Proventil Neb Soln] 2.5 mg INH Q4H PRN 12/15/16 13:30 Metolazone [Zaroxolyn] 2.5 mg PO DAILY@0800 12/15/16 14:00 Furosemide [Lasix] 80 mg PO BIDDIURETIC Potassium Chloride [Klor-Con M20] 20 meq PO TID 12/15/16 15:45 Warfarin Sliding Scale [Coumadin Sliding Scale] 1 each PO ASDIRECTED 12/15/16 16:00 Warfarin [Coumadin] 4 mg PO SUTUWETHFRSA 12/15/16 17:27 Glucose [Blood Glucose Check, Bedside] [RC] QIDACANDBED 12/15/16 17:30 Blood Glucose Check, Bedside [RC] QIDACANDBED 12/15/16 17:49 Consult to Occupational Therapy [OT Evaluation and Treatment] [CONS] Routine Consult to Physical Therapy [PT Evaluation and Treatment] [CONS] Routine 12/15/16 18:00 Insulin Aspart [NovoLOG] See Protocol SUBCUT TIDMEALS 12/15/16 21:00 Aspirin [Halfprin] 81 mg PO BEDTIME Bimatoprost [LUMIGAN 0.01% Ophth Soln] 0 ml EYEBOTH BEDTIME Gabapentin [Neurontin] 100 mg PO BEDTIME Insulin Detemir [Levemir] 25 unit SUBCUT BEDTIME Latanoprost [Xalatan 0.005% Ophth Soln] 0 ml EYEBOTH BEDTIME traZODone 50 mg PO BEDTIME 12/15/16 Lunch Consistent Carbohydrate Diet [DIET] 12/16/16 06:00 Levothyroxine 112 mcg PO DAILY@0600 Pantoprazole [ProTONIX] 40 mg PO 0600 12/16/16 06:25 B-TYPE NATRIURETIC PEPTIDE,BNP [CHEM] AM BASIC METABOLIC PANEL,BMP [CHEM] AM CBC WITH AUTO DIFF [HEME] AM INR,PT,PROTHROMBIN TIME [COAG] DAILY 12/16/16 09:00 Lutein/Min/Vit C/Vit E Acetate [Ocuvite Lutein] 1 each PO DAILY Simvastatin [Zocor] 20 mg PO DAILY 12/17/16 06:00 INR,PT,PROTHROMBIN TIME [COAG] DAILY 12/18/16 06:00 INR,PT,PROTHROMBIN TIME [COAG] DAILY 12/19/16 06:00 INR,PT,PROTHROMBIN TIME [COAG] DAILY 12/20/16 16:00 Warfarin [Coumadin] 2 mg PO MO 12/26/16 08:00 Ergocalciferol (Vitamin D2) [Vitamin D2] 50,000 units PO Q30D - Plan Plan:: 1. Waiting for morning labs are pending. 2. Continue Rocephin and Zithromax. 3. Ambulate 4 times a day. 4. DC Telemetry 5. PT/OT
[2016-12-16] MEDS: cefTRIAXone 1,000 MG in Sodium Chloride 0.9% 50 ML IV SCH (11:08)
[2016-12-16] MEDS: Azithromycin 500 MG in Sodium Chloride 0.9% 250 ML IV SCH (13:00)
[2016-12-16] MEDS: Albuterol 0.083% 2.5 MG/3 ML Neb Soln INH PRN ×2 (14:38→21:37)
[2016-12-16] MEDS: Pantoprazole 40 MG Tab.CR PO SCH (16:30)
[2016-12-16] MEDS: Levothyroxine 112 MCG Tab PO SCH (16:30)
[2016-12-16] MEDS: Warfarin 4 MG Tab PO SCH (16:52)
[2016-12-16] MEDS: Aspirin 81 MG Tab.EC PO SCH (21:26)
[2016-12-16] MEDS: Gabapentin 100 MG Cap PO SCH (21:27)
[2016-12-16] MEDS: Latanoprost 0.005% Ophth Soln 2.5 ML Bottle EYEBOTH SCH (21:27)
[2016-12-16] MEDS: traZODone 50 MG Tab PO SCH (21:27)
[2016-12-16] MEDS: Insulin Detemir 100 Units/ML 3 ML Pen SUBCUT SCH (21:38)
[2016-12-17] MEDS: Albuterol 0.083% 2.5 MG/3 ML Neb Soln INH PRN (04:25)
[2016-12-17] MEDS: Levothyroxine 112 MCG Tab PO SCH (06:38)
[2016-12-17] MEDS: Pantoprazole 40 MG Tab.CR PO SCH (06:38)
[2016-12-17] MEDS: Insulin Aspart 100 Units/ML 3 ML Pen SUBCUT SCH ×3 (07:45→18:51)
[2016-12-17] MEDS: Furosemide 80 MG Tab PO SCH ×2 (07:48→14:56)
[2016-12-17] MEDS: Metolazone 2.5 MG Tab PO SCH (07:48)
--- NOTE | 2016-12-17 08:57 | PCM.PN ---
- General Info Date of Service: 12/17/16 Admission Dx/Problem (Free Text): Patient states she feels better today. She has less shortness of breath. She has a cough when she has albuterol nebulizer. She gets short of breath when she walks the bathroom. She denies chest pain or leg swelling. Subjective Update: The patient complains that she had an episode of shortness of breath last night. Apparently she was noted to be anxious and having difficulty breathing, and she became hypoxic and needed oxygenation by nasal cannula. She denies fever or chills and feels better this morning. She lives alone. Functional Status: Reports: Pain Controlled - Review of Systems General: Reports: Weakness Pulmonary: Reports: Shortness of Breath, Cough Cardiovascular: Denies: Chest Pain Gastrointestinal: Denies: No Symptoms Genitourinary: Denies: No Symptoms Musculoskeletal: Denies: No Symptoms Skin: Denies: No Symptoms Neurological: Denies: No Symptoms Psychiatric: Reports: Anxiety - Patient Data Vitals - Most Recent: Last Vital Signs Temp 98.7 F 12/17/16 08:00 Pulse 70 12/17/16 08:00 Resp 18 12/17/16 08:00 BP 135/54 L 12/17/16 08:00 Pulse Ox 95 12/17/16 08:00 Weight - Most Recent: 83.642 kg I&O - Last 24 Hours: Intake & Output 12/16/16 12/17/16 12/17/16 22:59 06:59 14:59 Intake Total 200 Output Total 400 1050 Balance -200 -1050 Lab Results Last 24 Hours: Laboratory Results - last 24 hr 12/16/16 12/16/16 12/16/16 Range/Units 06:25 06:25 11:46 WBC 9.3 (4.5-12.0) X10-3/uL RBC 4.05 (3.23-5.20) x10(6)uL Hgb 8.6 L (11.5-15.5) g/dL Hct 27.5 L (30.0-51.3) % MCV 68.0 L (80-96) fL MCH 21.2 L (27.7-33.6) pg MCHC 31.1 L (32.2-35.4) g/dL RDW 20.6 H (11.5-15.5) % Plt Count 207 (125-369) X10(3)uL MPV 8.1 (7.4-10.4) fL Add Manual Diff Yes Neutrophils % (Manual) 85 H (46-82) % Lymphocytes % (Manual) 10 L (13-37) % Monocytes % (Manual) 5 (4-12) % Hypochromasia Few Anisocytosis Moderate H Microcytosis Moderate H PT 21.8 H (8.7-11.1) INR 2.13 H (0.89-1.13) POC Glucose 302 H (80-116) mg/dL 12/16/16 12/16/16 12/17/16 Range/Units 16:20 21:30 06:45 WBC (4.5-12.0) X10-3/uL RBC (3.23-5.20) x10(6)uL Hgb (11.5-15.5) g/dL Hct (30.0-51.3) % MCV (80-96) fL MCH (27.7-33.6) pg MCHC (32.2-35.4) g/dL RDW (11.5-15.5) % Plt Count (125-369) X10(3)uL MPV (7.4-10.4) fL Add Manual Diff Neutrophils % (Manual) (46-82) % Lymphocytes % (Manual) (13-37) % Monocytes % (Manual) (4-12) % Hypochromasia Anisocytosis Microcytosis PT 24.9 H (8.7-11.1) INR 2.43 H (0.89-1.13) POC Glucose 361 H 330 H (80-116) mg/dL Karri Results Last 24 Hours: Microbiology 12/15/16 10:25 Aerobic Blood Culture - Preliminary Blood - Venous - Lab Draw NO GROWTH AFTER 1 DAY Anaerobic Blood Culture - Preliminary NO GROWTH AFTER 1 DAY 12/15/16 10:15 Aerobic Blood Culture - Preliminary Blood - Venous NO GROWTH AFTER 1 DAY Anaerobic Blood Culture - Preliminary NO GROWTH AFTER 1 DAY Med Orders - Current: Current Medications Acetaminophen (Tylenol Extra Strength) 500 mg PO Q4H PRN PRN Reason: Pain Albuterol/Ipratropium (Duoneb 3.0-0.5 Mg/3 Ml) 3 ml NEB QIDRT [facility] Allopurinol (Zyloprim) 100 mg PO DAILY [facility] Last Admin: 12/16/16 08:43 Dose: 100 mg Amlodipine Besylate (Norvasc) 5 mg PO DAILY [facility] Last Admin: 12/16/16 08:42 Dose: 5 mg Artificial Tears (Liquitears 1.4% Ophth Soln) 0 ml EYEBOTH QID PRN PRN Reason: Dry Eyes Aspirin (Halfprin) 81 mg PO BEDTIME [facility] Last Admin: 12/16/16 21:26 Dose: 81 mg Calcitriol (Rocaltrol) 0.25 mcg PO DAILY [facility] Last Admin: 12/16/16 08:43 Dose: 0.25 mcg Citalopram Hydrobromide (Celexa) 20 mg PO DAILY [facility] Dextrose (Glutose 15) 15 gm PO Q1H PRN PRN Reason: low blood sugar Ergocalciferol (Vitamin D2) 50,000 units PO Q30D [facility] Ferrous Sulfate (Ferrous Sulfate) 325 mg PO DAILY [facility] Last Admin: 12/16/16 08:41 Dose: 325 mg Furosemide (Lasix) 80 mg PO BIDDIURETIC [facility] Last Admin: 12/17/16 07:48 Dose: 80 mg Gabapentin (Neurontin) 100 mg PO BEDTIME [facility] Last Admin: 12/16/16 21:27 Dose: 100 mg Azithromycin 500 mg/ Sodium (Chloride) 250 mls @ 250 mls/hr IV Q24H [facility] Last Admin: 12/16/16 13:00 Dose: 250 mls/hr Ceftriaxone Sodium 1,000 mg/ (Sodium Chloride) 50 mls @ 100 mls/hr IV Q24H [facility] Last Admin: 12/16/16 11:08 Dose: 100 mls/hr Insulin Aspart (Novolog) 0 unit SUBCUT TIDMEALS [facility] PRN Reason: Protocol Last Admin: 12/17/16 07:45 Dose: Not Given Insulin Detemir (Levemir) 25 unit SUBCUT BEDTIME [facility] Last Admin: 12/16/16 21:38 Dose: 25 units Latanoprost (Xalatan 0.005% Ophth Soln) 0 ml EYEBOTH BEDTIME [facility] Last Admin: 12/16/16 21:27 Dose: 1 drop Levothyroxine Sodium (Levothyroxine) 112 mcg PO DAILY@0600 [facility] Last Admin: 12/17/16 06:38 Dose: 112 mcg Methylprednisolone Sodium Succinate (Solu-Medrol) 125 mg IVPUSH Q8H [facility] Metolazone (Zaroxolyn) 2.5 mg PO DAILY@0800 [facility] Last Admin: 12/17/16 07:48 Dose: 2.5 mg Multivit/Ca Carb/B Cmplx/FA/Prenat (Renal Caps Softgel) 1 cap PO DAILY [facility] Last Admin: 12/16/16 08:42 Dose: 1 cap Pantoprazole Sodium (Protonix) 40 mg PO 0600 [facility] Last Admin: 12/17/16 06:38 Dose: 40 mg Potassium Chloride (Klor-Con M20) 20 meq PO TID [facility] Last Admin: 12/16/16 21:26 Dose: 20 meq Simvastatin (Zocor) 20 mg PO DAILY [facility] Last Admin: 12/16/16 08:43 Dose: 20 mg Sodium Chloride (Saline Flush) 10 ml FLUSH ASDIRECTED PRN PRN Reason: Keep Vein Open Trazodone HCl (Trazodone) 50 mg PO BEDTIME [facility] Last Admin: 12/16/16 21:27 Dose: 50 mg Vit C/Vit E/Zinc/Copper/Lutein (Ocuvite Lutein) 1 each PO DAILY [facility] Last Admin: 12/16/16 08:42 Dose: 1 each Warfarin Sodium (Coumadin) 2 mg PO MO [facility] Warfarin Sodium (Coumadin) 4 mg PO SUTUWETHFRSA [facility] Last Admin: 12/16/16 16:52 Dose: 4 mg Warfarin Sodium (Coumadin Sliding Scale) 1 each PO ASDIRECTED [facility] Discontinued Medications Albuterol (Proventil Neb Soln) 2.5 mg INH Q4H PRN PRN Reason: SHORTNESS OF BREATH Albuterol (Proventil Neb Soln) Confirm Administered Dose 2.5 mg .ROUTE .STK-MED ONE Stop: 12/15/16 13:13 Last Admin: 12/15/16 13:18 Dose: 2.5 mg Albuterol (Proventil Neb Soln) 2.5 mg INH Q4H PRN PRN Reason: SHORTNESS OF BREATH Last Admin: 12/17/16 04:25 Dose: 2.5 mg Albuterol/Ipratropium (Duoneb 3.0-0.5 Mg/3 Ml) 3 ml NEB ONETIME ONE Stop: 12/15/16 07:30 Last Admin: 12/15/16 07:41 Dose: 3 ml Bimatoprost (Lumigan 0.01% Ophth Soln) 0 ml EYEBOTH BEDTIME [facility] Last Admin: 12/15/16 20:18 Dose: Not Given Citalopram Hydrobromide (Celexa) 10 mg PO DAILY [facility] Last Admin: 12/16/16 08:41 Dose: 10 mg Furosemide (Lasix) 20 mg IVPUSH NOW ONE Stop: 12/15/16 09:10 Last Admin: 12/15/16 09:16 Dose: 20 mg Insulin Aspart (Novolog) 0 unit SUBCUT ONETIME ONE Stop: 12/15/16 21:44 Last Admin: 12/15/16 21:58 Dose: 10 units Insulin Aspart (Novolog) 0 unit SUBCUT ONETIME ONE Stop: 12/16/16 01:35 Last Admin: 12/16/16 01:52 Dose: 20 units Levothyroxine Sodium (Levothyroxine) 112 mcg PO ACBREAKFAST [facility] Last Admin: 12/15/16 12:08 Dose: 112 mcg Levothyroxine Sodium (Levothyroxine) 112 mcg PO ACBREAKFAST [facility] Methylprednisolone Sodium Succinate (Solu-Medrol) 125 mg IVPUSH ONETIME ONE Stop: 12/15/16 07:31 Last Admin: 12/15/16 07:43 Dose: 125 mg Methylprednisolone Sodium Succinate (Solu-Medrol) Confirm Administered Dose 125 mg .ROUTE .STK-MED ONE Stop: 12/15/16 07:38 Last Admin: 12/15/16 07:43 Dose: Not Given Potassium Chloride (Klor-Con M20) 20 meq PO TID [facility] Sodium Chloride (Saline Flush) 10 ml FLUSH ASDIRECTED PRN PRN Reason: Keep Vein Open Last Admin: 12/15/16 13:30 Dose: 10 ml - Exam Quality Assessment: Supplemental Oxygen General: Alert, Oriented Neck: Carotid Bruit Lungs: Normal Respiratory Effort, Decreased Breath Sounds Cardiovascular: No Murmurs, Irregular Rhythm GI/Abdominal Exam: Normal Bowel Sounds, Soft, Non-Tender, No Organomegaly, No Distention, No Abnormal Bruit, No Mass, Pelvis Stable Extremities: Normal Inspection Neurological: No New Focal Deficit Psy/Mental Status: Alert, Normal Affect, Anxious - Problem List & Annotations (1) Anxiety SNOMED Code(s): 99171901 Code(s): F41.9 - ANXIETY DISORDER, UNSPECIFIED Status: Acute Current Visit: Yes (2) DM2 (diabetes mellitus, type 2) SNOMED Code(s): 22081523 Code(s): E11.9 - TYPE 2 DIABETES MELLITUS WITHOUT COMPLICATIONS Status: Acute Current Visit: Yes Qualifiers: Diabetes mellitus complication status: without complication Diabetes mellitus senior living insulin use: with senior living use Qualified Code(s): E11.9 - Type 2 diabetes mellitus without complications; Z79.4 - ore sampler (current) use of insulin (3) CHF (congestive heart failure) SNOMED Code(s): 15796345 Code(s): I50.9 - HEART FAILURE, UNSPECIFIED Status: Chronic Current Visit : Yes Qualifiers: Congestive heart failure type: unspecified congestive heart failure type Congestive heart failure chronicity: chronic Qualified Code(s): I50.9 - Heart failure, unspecified (4) Pneumonia SNOMED Code(s): 664902088 Code(s): J18.9 - PNEUMONIA, UNSPECIFIED ORGANISM Status: Acute Current Visit: Yes Qualifiers: Pneumonia type: due to unspecified organism Laterality: bilateral (5) Anticoagulated on warfarin SNOMED Code(s): 79665965, 949623487 Code(s): Z79.01 - EDUCATIONAL PARAPROFESSIONAL (CURRENT) USE OF ANTICOAGULANTS Status: Chronic Priority: Low Current Visit: No (6) Chronic a-fib SNOMED Code(s): 918330488 Code(s): I48.2 - CHRONIC ATRIAL FIBRILLATION Status: Chronic Current Visit: No (7) Essential hypertension SNOMED Code(s): 98851892 Code(s): I10 - ESSENTIAL (PRIMARY) HYPERTENSION Status: Chronic Current Visit: No (8) History of coronary artery bypass graft x 3 SNOMED Code(s): 412273417, 381981678 Code(s): Z95.1 - PRESENCE OF AORTOCORONARY BYPASS GRAFT Status: Chronic Current Visit: No (9) Obesity, Class II, BMI 35-39.9, with comorbidity SNOMED Code(s): 961753017, 301861899, 459732762 Code(s): E66.01 - MORBID (SEVERE) OBESITY DUE TO EXCESS CALORIES Status: Chronic Current Visit: No (10) Anemia SNOMED Code(s): 508374115 Code(s): D64.9 - ANEMIA, UNSPECIFIED Status: Acute Current Visit: Yes - Problem List Review Problem List Initiated/Reviewed/Updated: Yes - My Orders Last 24 Hours: My Active Orders 12/17/16 08:00 B-TYPE NATRIURETIC PEPTIDE,BNP [CHEM] Stat BASIC METABOLIC PANEL,BMP [CHEM] Stat CBC WITH AUTO DIFF [HEME] Stat 12/17/16 08:50 Echo Comp wo Cont [US] Stat 12/17/16 08:51 RT Aerosol Therapy [RC] ASDIRECTED 12/17/16 09:00 Albuterol/Ipratropium [DuoNeb 3.0-0.5 MG/3 ML] 3 ml NEB QIDRT Citalopram [Celexa] 20 mg PO DAILY methylPREDNISolone Sod Succ [Solu-MEDROL] 125 mg IVPUSH Q8H 12/18/16 05:11 BASIC METABOLIC PANEL,BMP [CHEM] AM CBC WITH AUTO DIFF [HEME] AM - Plan Plan:: Repeat a CBC basic panel and BMP this morning. We'll increase the dose of Celexa to 20 mg. We'll start DuoNeb instead of albuterol. I also started Solu- Medrol for COPD. I've ordered for a 2-D echocardiogram to check the status of left ventricular function. I anticipate we'll keep a today possibly tomorrow and discharge over the weekend. I agree with Rocephin and azithromycin for now, and oxygen supplementation as needed
[2016-12-17] MEDS: Citalopram 20 MG Tab PO SCH (09:25)
[2016-12-17] MEDS: amLODIPine 5 MG Tab PO SCH (09:25)
[2016-12-17] MEDS: Potassium Chloride 20 MEQ Tab.ER PO SCH ×3 (09:25→21:01)
[2016-12-17] MEDS: Ferrous Sulfate 325 MG Tab PO SCH (09:25)
[2016-12-17] MEDS: Lutein/Minerals/Vitamin C/Vitamin E Acetate Cap PO SCH (09:26)
[2016-12-17] MEDS: Calcitriol 0.25 MCG Cap PO SCH (09:26)
[2016-12-17] MEDS: Folic Acid/Vitamin B Complex With C Cap PO SCH (09:26)
[2016-12-17] MEDS: Simvastatin 20 MG Tab PO SCH (09:26)
[2016-12-17] MEDS: Allopurinol 100 MG Tab PO SCH (09:26)
[2016-12-17] MEDS: methylPREDNISolone Sodium Succinate 125 MG/2 ML SDV IVPUSH SCH ×2 (09:27→16:34)
[2016-12-17] MEDS: cefTRIAXone 1,000 MG in Sodium Chloride 0.9% 50 ML IV SCH (10:08)
[2016-12-17] MEDS: Albuterol/Ipratropium 3.0-0.5 MG/3 ML Neb Soln NEB SCH ×4 (10:16→21:01)
[2016-12-17] MEDS: Azithromycin 500 MG in Sodium Chloride 0.9% 250 ML IV SCH (11:31)
[2016-12-17] MEDS: Sodium Chloride 0.9% 10 ML Syringe FLUSH PRN (14:56)
[2016-12-17] MEDS: Warfarin 4 MG Tab PO SCH (16:31)
[2016-12-17] MEDS ORDERED: Insulin Aspart 100 Units/ML 3 ML Pen SUBCUT ONE ×2 (18:35→21:51)
[2016-12-17] MEDS: Aspirin 81 MG Tab.EC PO SCH (21:01)
[2016-12-17] MEDS: Gabapentin 100 MG Cap PO SCH (21:01)
[2016-12-17] MEDS: traZODone 50 MG Tab PO SCH (21:01)
[2016-12-17] MEDS: Latanoprost 0.005% Ophth Soln 2.5 ML Bottle EYEBOTH SCH (21:01)
[2016-12-17] MEDS: Insulin Detemir 100 Units/ML 3 ML Pen SUBCUT SCH (21:11)
[2016-12-18] MEDS: Sodium Chloride 0.9% 10 ML Syringe FLUSH PRN ×3 (01:50→16:22)
[2016-12-18] MEDS: methylPREDNISolone Sodium Succinate 125 MG/2 ML SDV IVPUSH SCH ×3 (01:50→16:23)
[2016-12-18] MEDS: Levothyroxine 112 MCG Tab PO SCH (06:38)
[2016-12-18] MEDS: Pantoprazole 40 MG Tab.CR PO SCH (06:39)
[2016-12-18] MEDS: Albuterol/Ipratropium 3.0-0.5 MG/3 ML Neb Soln NEB SCH ×4 (07:00→20:04)
[2016-12-18] MEDS: Furosemide 80 MG Tab PO SCH ×2 (07:39→13:02)
[2016-12-18] MEDS: Metolazone 2.5 MG Tab PO SCH (07:39)
[2016-12-18] MEDS: Insulin Aspart 100 Units/ML 3 ML Pen SUBCUT SCH ×3 (08:04→17:10)
--- NOTE | 2016-12-18 08:07 | PN ---
DATE SEEN: 12/18/2016 CHIEF COMPLAINT: Shortness of breath. HISTORY OF PRESENT ILLNESS: This is an 81-year-old female admitted on Tuesday for pneumonia, COPD, asthma, and history of CHF. Overnight, she slept well, but still needs oxygen, especially at night. No chest pain. No fever or chills. Her blood sugars have been going up after the Solu-Medrol was initiated. REVIEW OF SYSTEMS: All other systems negative. SOCIAL HISTORY: She lives alone. PHYSICAL EXAMINATION: GENERAL: She is pleasant, not in any cardiopulmonary distress. She is afebrile and normotensive. EARS, NOSE AND THROAT: Negative. CARDIOVASCULAR: Normal with the exception of a murmur. RESPIRATORY: Clear breath sounds anteriorly. EXTREMITIES: No edema. MENTAL STATUS: Alert and answer questions appropriately. LABORATORY DATA: Hemoglobin is down 7.8, creatinine is still 1.6. Echocardiogram is pending. IMPRESSION: 1. Chronic obstructive pulmonary disease exacerbation. 2. Community-acquired pneumonia. 3. Anxiety disorder. 4. Anemia. 5. Chronic atrial fibrillation. 6. Chronic renal insufficiency. 7. Type 2 diabetes. 8. Hypertension. 9. Long-term anticoagulation. 10.Obesity. 11.History of coronary artery disease with bypass graft x3. PLAN: My goal is to have her ambulate today. Continue the IV Solu-Medrol. We will keep an eye on the hemoglobin, repeat tomorrow morning. Currently asymptomatic. Hold off on transfusion. I will also have respiratory therapy evaluate for need of home oxygenation. The rest of the home medications have been continued including a tight sliding scale of insulin. /[id number] GOYO/LILLIAM
[2016-12-18] MEDS: Citalopram 20 MG Tab PO SCH (08:22)
[2016-12-18] MEDS: Potassium Chloride 20 MEQ Tab.ER PO SCH ×3 (08:22→20:04)
[2016-12-18] MEDS: amLODIPine 5 MG Tab PO SCH (08:23)
[2016-12-18] MEDS: Ferrous Sulfate 325 MG Tab PO SCH (08:23)
[2016-12-18] MEDS: Lutein/Minerals/Vitamin C/Vitamin E Acetate Cap PO SCH (08:24)
[2016-12-18] MEDS: Folic Acid/Vitamin B Complex With C Cap PO SCH (08:24)
[2016-12-18] MEDS: Calcitriol 0.25 MCG Cap PO SCH (08:24)
[2016-12-18] MEDS: Simvastatin 20 MG Tab PO SCH (08:25)
[2016-12-18] MEDS: Allopurinol 100 MG Tab PO SCH (08:25)
[2016-12-18] MEDS: cefTRIAXone 1,000 MG in Sodium Chloride 0.9% 50 ML IV SCH (10:54)
[2016-12-18] MEDS: Sodium Chloride 0.9% 250 ML IV SCH (10:56)
[2016-12-18] MEDS: Azithromycin 500 MG in Sodium Chloride 0.9% 250 ML IV SCH (13:01)
[2016-12-18] MEDS: Warfarin 4 MG Tab PO SCH (16:15)
[2016-12-18] MEDS ORDERED: Insulin Aspart 100 Units/ML 3 ML Pen SUBCUT ONE ×2 (17:00→22:15)
[2016-12-18] MEDS: Aspirin 81 MG Tab.EC PO SCH (20:04)
[2016-12-18] MEDS: Latanoprost 0.005% Ophth Soln 2.5 ML Bottle EYEBOTH SCH (20:05)
[2016-12-18] MEDS: Gabapentin 100 MG Cap PO SCH (20:05)
[2016-12-18] MEDS: traZODone 50 MG Tab PO SCH (20:05)
[2016-12-18] MEDS: Insulin Detemir 100 Units/ML 3 ML Pen SUBCUT SCH (20:07)
[2016-12-19] MEDS: methylPREDNISolone Sodium Succinate 125 MG/2 ML SDV IVPUSH SCH ×3 (01:40→20:18)
[2016-12-19] MEDS: Levothyroxine 112 MCG Tab PO SCH (06:29)
[2016-12-19] MEDS: Pantoprazole 40 MG Tab.CR PO SCH (06:29)
[2016-12-19] MEDS: Albuterol/Ipratropium 3.0-0.5 MG/3 ML Neb Soln NEB SCH ×4 (07:04→21:00)
[2016-12-19] MEDS: Metolazone 2.5 MG Tab PO SCH (08:02)
[2016-12-19] MEDS: Furosemide 80 MG Tab PO SCH ×2 (08:02→13:58)
[2016-12-19] MEDS: Citalopram 20 MG Tab PO SCH (08:02)
[2016-12-19] MEDS: Lutein/Minerals/Vitamin C/Vitamin E Acetate Cap PO SCH (08:03)
[2016-12-19] MEDS: Potassium Chloride 20 MEQ Tab.ER PO SCH ×3 (08:03→21:00)
[2016-12-19] MEDS: Ferrous Sulfate 325 MG Tab PO SCH (08:03)
[2016-12-19] MEDS: amLODIPine 5 MG Tab PO SCH (08:03)
[2016-12-19] MEDS: Simvastatin 20 MG Tab PO SCH (08:04)
[2016-12-19] MEDS: Allopurinol 100 MG Tab PO SCH (08:04)
[2016-12-19] MEDS: Folic Acid/Vitamin B Complex With C Cap PO SCH (08:04)
[2016-12-19] MEDS: Calcitriol 0.25 MCG Cap PO SCH (08:04)
[2016-12-19] MEDS: Insulin Aspart 100 Units/ML 3 ML Pen SUBCUT SCH ×3 (08:05→18:04)
[2016-12-19] MEDS ORDERED: Furosemide 20 MG/2 ML VIAL IVPUSH ONE (08:58)
[2016-12-19] MEDS ORDERED: Sodium Chloride 0.9% 250 ML IV SCH (09:00)
[2016-12-19] MEDS ORDERED: methylPREDNISolone Sodium Succinate 125 MG/2 ML SDV IVPUSH SCH (09:15)
[2016-12-19] MEDS: cefTRIAXone 1,000 MG in Sodium Chloride 0.9% 50 ML IV SCH (10:03)
[2016-12-19] MEDS ORDERED: Furosemide 40 MG/4 ML VIAL IVPUSH ONE (12:00)
--- NOTE | 2016-12-19 12:20 | PN ---
DATE SEEN: 12/19/2016 REASON FOR VISIT: COPD, pneumonia. HISTORY OF PRESENT ILLNESS: This is an 81-year-old female who has had pneumonia. Overnight, she needed more oxygenation again, gets short of breath when she lies down especially at night and also on moderate ambulation. No chest pain. No fever. She has a history of CHF, COPD or asthma previously stable. She has type 2 diabetes with an A1c of 5.9 at the beginning of November. However, blood sugars have been high since we started Solu-Medrol ranging in the 400s. REVIEW OF SYSTEMS: All other systems unremarkable. SOCIAL HISTORY: Does not smoke. Lives alone. PHYSICAL EXAMINATION: GENERAL: Not in distress. Pleasant. VITAL SIGNS: Blood pressure is normal and pulse is normal. She has oxygenation of 94% on 1 L of normal saline. EARS, NOSE AND THROAT: Negative. NECK: Supple. CHEST: End-expiratory rhonchi occasionally and crackles in the bases. EXTREMITIES: No peripheral edema. LABORATORY DATA: Hemoglobin is down to 7.7 with a hematocrit of 67.2, sodium 133, creatinine is 1.6. Echocardiogram is still pending report. IMPRESSION: 1. Shortness of breath due to community-acquired pneumonia, chronic obstructive pulmonary disease, and possibly congestive heart failure. 2. Chronic renal failure. 3. Anemia, iron deficiency or chronic disease. 4. Possible sleep apnea. 5. Hypertension. 6. Type 2 diabetes. 7. Atrial fibrillation, chronic. 8. Anxiety. 9. Long-term anticoagulation. 10.History of coronary artery disease with bypass graft x3. PLAN: 1. I will transfuse 2 units of PRBCs and give Lasix in between. 2. I will continue with Solu-Medrol, but reduce it to twice a day. Continue SVNs as needed. Tight glycemic control with sliding scale of the insulin. Discontinue azithromycin. It has been more than 3 days now. Tomorrow, repeat a CBC and basic profile. Consideration for home O2 or polysomnogram is recommended, perhaps home health nurse visits as well. I will see her staying here for another 1-2 days. /[id number] GOYO/LILLIAM
[2016-12-19] MEDS: Sodium Chloride 0.9% 250 ML IV SCH (13:48)
[2016-12-19] MEDS: Warfarin 4 MG Tab PO SCH (16:02)
[2016-12-19] MEDS: Sodium Chloride 0.9% 10 ML Syringe FLUSH PRN ×2 (16:39→20:19)
[2016-12-19] MEDS ORDERED: Insulin Aspart 100 Units/ML 3 ML Pen SUBCUT ONE (20:00)
[2016-12-19] MEDS: Gabapentin 100 MG Cap PO SCH (21:00)
[2016-12-19] MEDS: traZODone 50 MG Tab PO SCH (21:00)
[2016-12-19] MEDS: Latanoprost 0.005% Ophth Soln 2.5 ML Bottle EYEBOTH SCH (21:00)
[2016-12-19] MEDS: Aspirin 81 MG Tab.EC PO SCH (21:00)
[2016-12-19] MEDS: Insulin Detemir 100 Units/ML 3 ML Pen SUBCUT SCH (21:44)
[2016-12-20] MEDS: Pantoprazole 40 MG Tab.CR PO SCH (06:37)
[2016-12-20] MEDS: Levothyroxine 112 MCG Tab PO SCH (06:37)
[2016-12-20] MEDS: Albuterol/Ipratropium 3.0-0.5 MG/3 ML Neb Soln NEB SCH ×4 (07:05→20:27)
[2016-12-20] MEDS: Insulin Aspart 100 Units/ML 3 ML Pen SUBCUT SCH ×3 (08:03→17:37)
[2016-12-20] MEDS: Metolazone 2.5 MG Tab PO SCH (08:08)
[2016-12-20] MEDS: Furosemide 80 MG Tab PO SCH ×2 (08:08→15:01)
[2016-12-20] MEDS: Citalopram 20 MG Tab PO SCH (08:09)
[2016-12-20] MEDS: Lutein/Minerals/Vitamin C/Vitamin E Acetate Cap PO SCH (08:09)
[2016-12-20] MEDS: Ferrous Sulfate 325 MG Tab PO SCH (08:09)
[2016-12-20] MEDS: Folic Acid/Vitamin B Complex With C Cap PO SCH (08:09)
[2016-12-20] MEDS: amLODIPine 5 MG Tab PO SCH (08:09)
[2016-12-20] MEDS: Calcitriol 0.25 MCG Cap PO SCH (08:09)
[2016-12-20] MEDS: Potassium Chloride 20 MEQ Tab.ER PO SCH ×3 (08:09→20:27)
[2016-12-20] MEDS: Allopurinol 100 MG Tab PO SCH (08:10)
[2016-12-20] MEDS: Simvastatin 20 MG Tab PO SCH (08:10)
[2016-12-20] MEDS: Sodium Chloride 0.9% 10 ML Syringe FLUSH PRN (08:46)
[2016-12-20] MEDS: methylPREDNISolone Sodium Succinate 125 MG/2 ML SDV IVPUSH SCH (08:46)
--- NOTE | 2016-12-20 09:08 | PCM.PN ---
- General Info Date of Service: 12/20/16 Admission Dx/Problem (Free Text): Patient states her breathing is better. She still has a cough is nonproductive. She denies leg swelling, chest pain, fevers or chills. Nurses reported blood sugars running high on Solu-Medrol. - Patient Data Vitals - Most Recent: Last Vital Signs Temp 97.7 F 12/20/16 00:30 Pulse 68 12/20/16 07:15 Resp 20 12/20/16 00:30 BP 152/61 H 12/20/16 08:09 Pulse Ox 94 L 12/20/16 07:15 Weight - Most Recent: 185 lb 3.2 oz I&O - Last 24 Hours: Intake & Output 12/19/16 12/20/16 12/20/16 22:59 06:59 14:59 Intake Total 691 Output Total 800 1500 Balance -109 -1500 Lab Results Last 24 Hours: Laboratory Results - last 24 hr 12/19/16 12/19/16 12/19/16 Range/Units 06:20 11:33 17:33 WBC (4.5-12.0) X10-3/uL RBC (3.23-5.20) x10(6)uL Hgb (11.5-15.5) g/dL Hct (30.0-51.3) % MCV (80-96) fL MCH (27.7-33.6) pg MCHC (32.2-35.4) g/dL RDW (11.5-15.5) % Plt Count (125-369) X10(3)uL MPV (7.4-10.4) fL Add Manual Diff Neutrophils % (Manual) (46-82) % Lymphocytes % (Manual) (13-37) % Monocytes % (Manual) (4-12) % Hypochromasia Poikilocytosis Anisocytosis Microcytosis Sodium (135-145) mmol/L Potassium (3.5-5.3) mmol/L Chloride (100-110) mmol/L Carbon Dioxide (23-29) mmol/L BUN (8-23) mg/dL Creatinine (0.6-1.3) mg/dL Est Cr Clr Drug Dosing mL/min Estimated GFR (MDRD) (>60) BUN/Creatinine Ratio (9-20) Glucose (80-116) mg/dL POC Glucose 320 H D 474 H* D (80-116) mg/dL Calcium (8.6-10.2) mg/dL Blood Type A POSITIVE Gel Antibody Screen Negative Crossmatch See Detail 12/19/16 12/19/16 12/19/16 Range/Units 17:45 19:40 21:22 WBC (4.5-12.0) X10-3/uL RBC (3.23-5.20) x10(6)uL Hgb (11.5-15.5) g/dL Hct (30.0-51.3) % MCV (80-96) fL MCH (27.7-33.6) pg MCHC (32.2-35.4) g/dL RDW (11.5-15.5) % Plt Count (125-369) X10(3)uL MPV (7.4-10.4) fL Add Manual Diff Neutrophils % (Manual) (46-82) % Lymphocytes % (Manual) (13-37) % Monocytes % (Manual) (4-12) % Hypochromasia Poikilocytosis Anisocytosis Microcytosis Sodium (135-145) mmol/L Potassium (3.5-5.3) mmol/L Chloride (100-110) mmol/L Carbon Dioxide (23-29) mmol/L BUN (8-23) mg/dL Creatinine (0.6-1.3) mg/dL Est Cr Clr Drug Dosing mL/min Estimated GFR (MDRD) (>60) BUN/Creatinine Ratio (9-20) Glucose 476 H* D (80-116) mg/dL POC Glucose 473 H* 399 H (80-116) mg/dL Calcium (8.6-10.2) mg/dL Blood Type Gel Antibody Screen Crossmatch 12/20/16 12/20/16 Range/Units 06:40 06:40 WBC 4.9 (4.5-12.0) X10-3/uL RBC 4.50 (3.23-5.20) x10(6)uL Hgb 10.4 L (11.5-15.5) g/dL Hct 32.3 (30.0-51.3) % MCV 71.8 L (80-96) fL MCH 23.0 L (27.7-33.6) pg MCHC 32.1 L (32.2-35.4) g/dL RDW 22.5 H (11.5-15.5) % Plt Count 214 (125-369) X10(3)uL MPV 8.9 (7.4-10.4) fL Add Manual Diff Yes Neutrophils % (Manual) 92 H (46-82) % Lymphocytes % (Manual) 6 L (13-37) % Monocytes % (Manual) 2 L (4-12) % Hypochromasia Few Poikilocytosis Few Anisocytosis Moderate H Microcytosis Moderate H Sodium 135 (135-145) mmol/L Potassium 3.2 L (3.5-5.3) mmol/L Chloride 97 L (100-110) mmol/L Carbon Dioxide 26 (23-29) mmol/L BUN 100 H (8-23) mg/dL Creatinine 1.5 H (0.6-1.3) mg/dL Est Cr Clr Drug Dosing 25.40 mL/min Estimated GFR (MDRD) 33 L (>60) BUN/Creatinine Ratio 66.7 H (9-20) Glucose 316 H D (80-116) mg/dL POC Glucose (80-116) mg/dL Calcium 9.3 (8.6-10.2) mg/dL Blood Type Gel Antibody Screen Crossmatch Karri Results Last 24 Hours: Microbiology 12/15/16 10:25 Aerobic Blood Culture - Preliminary Blood - Venous - Lab Draw NO GROWTH AFTER 4 DAYS Anaerobic Blood Culture - Preliminary NO GROWTH AFTER 4 DAYS 12/15/16 10:15 Aerobic Blood Culture - Preliminary Blood - Venous NO GROWTH AFTER 4 DAYS Anaerobic Blood Culture - Preliminary NO GROWTH AFTER 4 DAYS Med Orders - Current: Current Medications Acetaminophen (Tylenol Extra Strength) 500 mg PO Q4H PRN PRN Reason: Pain Albuterol/Ipratropium (Duoneb 3.0-0.5 Mg/3 Ml) 3 ml NEB QIDRT [facility] Last Admin: 12/20/16 07:05 Dose: 3 ml Allopurinol (Zyloprim) 100 mg PO DAILY [facility] [place] Last Admin: 12/20/16 08:10 Dose: 100 mg Amlodipine Besylate (Norvasc) 5 mg PO DAILY [facility] [place] Last Admin: 12/20/16 08:09 Dose: 5 mg Artificial Tears (Liquitears 1.4% Ophth Soln) 0 ml EYEBOTH QID PRN PRN Reason: Dry Eyes Aspirin (Halfprin) 81 mg PO BEDTIME [facility] [place] Last Admin: 12/19/16 21:00 Dose: 81 mg Calcitriol (Rocaltrol) 0.25 mcg PO DAILY [facility] [place] Last Admin: 12/20/16 08:09 Dose: 0.25 mcg Citalopram Hydrobromide (Celexa) 20 mg PO DAILY [facility] [place] Last Admin: 12/20/16 08:09 Dose: 20 mg Dextrose (Glutose 15) 15 gm PO Q1H PRN PRN Reason: low blood sugar Ergocalciferol (Vitamin D2) 50,000 units PO Q30D [facility] Ferrous Sulfate (Ferrous Sulfate) 325 mg PO DAILY [facility] Last Admin: 12/20/16 08:09 Dose: 325 mg Furosemide (Lasix) 80 mg PO BIDDIURETIC [facility] [place] Last Admin: 12/20/16 08:08 Dose: 80 mg Gabapentin (Neurontin) 100 mg PO BEDTIME [facility] [place] Last Admin: 12/19/16 21:00 Dose: 100 mg Ceftriaxone Sodium 1,000 mg/ (Sodium Chloride) 50 mls @ 100 mls/hr IV Q24H [facility] [place] Last Admin: 12/19/16 10:03 Dose: 100 mls/hr Insulin Aspart (Novolog) 0 unit SUBCUT TIDMEALS [facility] PRN Reason: Protocol Last Admin: 12/20/16 08:03 Dose: 12 units Insulin Detemir (Levemir) 25 unit SUBCUT BEDTIME [facility] [place] Last Admin: 12/19/16 21:44 Dose: 25 units Latanoprost (Xalatan 0.005% Ophth Soln) 0 ml EYEBOTH BEDTIME [facility] [place] Last Admin: 12/19/16 21:00 Dose: 1 drop Levothyroxine Sodium (Levothyroxine) 112 mcg PO DAILY@0600 [facility] [place] Last Admin: 12/20/16 06:37 Dose: 112 mcg Metolazone (Zaroxolyn) 2.5 mg PO DAILY@0800 [facility] [place] Last Admin: 12/20/16 08:08 Dose: 2.5 mg Multivit/Ca Carb/B Cmplx/FA/Prenat (Renal Caps Softgel) 1 cap PO DAILY [facility] [place] Last Admin: 12/20/16 08:09 Dose: 1 cap Pantoprazole Sodium (Protonix) 40 mg PO 0600 [facility] [place] Last Admin: 12/20/16 06:37 Dose: 40 mg Potassium Chloride (Klor-Con M20) 20 meq PO TID [facility] [place] Last Admin: 12/20/16 08:09 Dose: 20 meq Simvastatin (Zocor) 20 mg PO DAILY [facility] [place] Last Admin: 12/20/16 08:10 Dose: 20 mg Sodium Chloride (Saline Flush) 10 ml FLUSH ASDIRECTED PRN PRN Reason: Keep Vein Open Last Admin: 12/20/16 08:46 Dose: 10 ml Trazodone HCl (Trazodone) 50 mg PO BEDTIME [facility] [place] Last Admin: 12/19/16 21:00 Dose: 50 mg Vit C/Vit E/Zinc/Copper/Lutein (Ocuvite Lutein) 1 each PO DAILY [facility] [place] Last Admin: 12/20/16 08:09 Dose: 1 each Warfarin Sodium (Coumadin) 2 mg PO MO [facility] Warfarin Sodium (Coumadin) 4 mg PO SUTUWETHFRSA [facility] [place] Last Admin: 12/19/16 16:02 Dose: 4 mg Warfarin Sodium (Coumadin Sliding Scale) 1 each PO ASDIRECTED [facility] Discontinued Medications Albuterol (Proventil Neb Soln) 2.5 mg INH Q4H PRN PRN Reason: SHORTNESS OF BREATH Albuterol (Proventil Neb Soln) Confirm Administered Dose 2.5 mg .ROUTE .STK-MED ONE Stop: 12/15/16 13:13 Last Admin: 12/15/16 13:18 Dose: 2.5 mg Albuterol (Proventil Neb Soln) 2.5 mg INH Q4H PRN PRN Reason: SHORTNESS OF BREATH Last Admin: 12/17/16 04:25 Dose: 2.5 mg Albuterol/Ipratropium (Duoneb 3.0-0.5 Mg/3 Ml) 3 ml NEB ONETIME ONE Stop: 12/15/16 07:30 Last Admin: 12/15/16 07:41 Dose: 3 ml Bimatoprost (Lumigan 0.01% Ophth Soln) 0 ml EYEBOTH BEDTIME [facility] [place] Last Admin: 12/15/16 20:18 Dose: Not Given Citalopram Hydrobromide (Celexa) 10 mg PO DAILY [facility] [place] Last Admin: 12/16/16 08:41 Dose: 10 mg Furosemide (Lasix) 20 mg IVPUSH NOW ONE Stop: 12/15/16 09:10 Last Admin: 12/15/16 09:16 Dose: 20 mg Furosemide (Lasix) 20 mg IVPUSH ONETIME ONE Stop: 12/19/16 08:59 Last Admin: 12/19/16 10:16 Dose: Not Given Furosemide (Lasix) 40 mg IVPUSH NOW ONE Stop: 12/19/16 12:01 Last Admin: 12/19/16 13:56 Dose: 40 mg Azithromycin 500 mg/ Sodium (Chloride) 250 mls @ 250 mls/hr IV Q24H [facility] Last Admin: 12/18/16 13:01 Dose: 250 mls/hr Sodium Chloride (Normal Saline) 250 mls @ 100 mls/hr IV ASDIRECTED [facility] [place] Last Admin: 12/19/16 13:48 Dose: 100 mls/hr Sodium Chloride (Normal Saline) 250 mls @ 100 mls/hr IV ASDIRECTED [facility] [place] Insulin Aspart (Novolog) 0 unit SUBCUT ONETIME ONE Stop: 12/15/16 21:44 Last Admin: 12/15/16 21:58 Dose: 10 units Insulin Aspart (Novolog) 0 unit SUBCUT ONETIME ONE Stop: 12/16/16 01:35 Last Admin: 12/16/16 01:52 Dose: 20 units Insulin Aspart (Novolog) 15 unit SUBCUT ONETIME ONE Stop: 12/17/16 18:36 Last Admin: 12/17/16 19:08 Dose: 15 units Insulin Aspart (Novolog) 15 unit SUBCUT ONETIME ONE Stop: 12/17/16 21:52 Last Admin: 12/17/16 22:27 Dose: 15 units Insulin Aspart (Novolog) 20 unit SUBCUT ONETIME ONE Stop: 12/18/16 17:01 Last Admin: 12/18/16 17:17 Dose: 20 units Insulin Aspart (Novolog) 10 unit SUBCUT ONETIME ONE Stop: 12/18/16 22:16 Last Admin: 12/18/16 22:29 Dose: 10 units Insulin Aspart (Novolog) 10 unit SUBCUT ASDIRECTED ONE Stop: 12/19/16 20:01 Last Admin: 12/19/16 20:13 Dose: 10 units Levothyroxine Sodium (Levothyroxine) 112 mcg PO ACBREAKFAST [facility] [place] Last Admin: 12/15/16 12:08 Dose: 112 mcg Levothyroxine Sodium (Levothyroxine) 112 mcg PO ACBREAKFAST [facility] [place] Methylprednisolone Sodium Succinate (Solu-Medrol) 125 mg IVPUSH ONETIME ONE Stop: 12/15/16 07:31 Last Admin: 12/15/16 07:43 Dose: 125 mg Methylprednisolone Sodium Succinate (Solu-Medrol) Confirm Administered Dose 125 mg .ROUTE .STK-MED ONE Stop: 12/15/16 07:38 Last Admin: 12/15/16 07:43 Dose: Not Given Methylprednisolone Sodium Succinate (Solu-Medrol) 125 mg IVPUSH Q8H [facility] [place] Last Admin: 12/19/16 08:04 Dose: 125 mg Methylprednisolone Sodium Succinate (Solu-Medrol) 125 mg IVPUSH Q12H [facility] Methylprednisolone Sodium Succinate (Solu-Medrol) 125 mg IVPUSH Q12H [facility] [place] Last Admin: 12/20/16 08:46 Dose: 125 mg Potassium Chloride (Klor-Con M20) 20 meq PO TID [facility] Sodium Chloride (Saline Flush) 10 ml FLUSH ASDIRECTED PRN PRN Reason: Keep Vein Open Last Admin: 12/15/16 13:30 Dose: 10 ml - Exam General: Alert, Oriented, Cooperative Neck: Supple Lungs: Decreased Breath Sounds, Crackles, Other (Mildly tachypneic). No: Normal Respiratory Effort, Rales, Rhonchi, Stridor, Wheezing Cardiovascular: Regular Rate, Irregular Rhythm Extremities: Normal Inspection, Pedal Edema (+1) Skin: Warm, Dry, Intact Psy/Mental Status: Alert, Normal Affect, Normal Mood - Problem List & Annotations (1) Pneumonia SNOMED Code(s): 230523538 Code(s): J18.9 - PNEUMONIA, UNSPECIFIED ORGANISM Status: Acute Current Visit: Yes Qualifiers: Pneumonia type: due to unspecified organism Laterality: bilateral (2) Palliative care patient SNOMED Code(s): 657058709 Code(s): Z51.5 - ENCOUNTER FOR PALLIATIVE CARE Status: Acute Current Visit: Yes (3) CHF (congestive heart failure) SNOMED Code(s): 55623872 Code(s): I50.9 - HEART FAILURE, UNSPECIFIED Status: Chronic Current Visit : Yes Qualifiers: Congestive heart failure type: unspecified congestive heart failure type Congestive heart failure chronicity: chronic Qualified Code(s): I50.9 - Heart failure, unspecified (4) Anticoagulated on warfarin SNOMED Code(s): 18334514, 722481596 Code(s): Z79.01 - [facility] (CURRENT) USE OF ANTICOAGULANTS Status: Chronic Priority: Low Current Visit: No (5) Chronic a-fib SNOMED Code(s): 163400250 Code(s): I48.2 - CHRONIC ATRIAL FIBRILLATION Status: Chronic Current Visit: No (6) Anemia in chronic kidney disease (CKD) SNOMED Code(s): 925481923 Code(s): N18.9 - CHRONIC KIDNEY DISEASE, UNSPECIFIED; D63.1 - ANEMIA IN CHRONIC KIDNEY DISEASE Status: Chronic Priority: Low Current Visit: No (7) Carotid artery bruit SNOMED Code(s): 678037847, 777056140 Code(s): R09.89 - OTH SYMPTOMS AND SIGNS INVOLVING THE CIRC AND RESP SYSTEMS Status: Acute Current Visit: Yes - Problem List Review Problem List Initiated/Reviewed/Updated: Yes - My Orders Last 24 Hours: My Active Orders 12/20/16 09:05 Convert IV to Saline Lock [OM.PC] Routine 12/20/16 16:00 Warfarin [Coumadin] 2 mg PO MO 12/26/16 08:00 Ergocalciferol (Vitamin D2) [Vitamin D2] 50,000 units PO Q30D - Plan Plan:: 1. Chest x-ray today 2. DC Solu-Medrol 3. DC IV fluids and saline lock IV. 4. Continue to monitor blood sugars.
[2016-12-20] MEDS ORDERED: Sodium Chloride 0.9% 250 ML IV SCH (10:00)
[2016-12-20] MEDS: cefTRIAXone 1,000 MG in Sodium Chloride 0.9% 50 ML IV SCH (10:20)
--- NOTE | 2016-12-20 15:09 | CR ---
INDICATION: Community acquired pneumonia. CHEST: PA and lateral views of the chest 12/20/2016 were compared with 2016 and revealed increased bibasilar pleuroparenchymal changes compatible with pneumonia and pleuritis. Upper lung field pulmonary vasculature remains prominent with enlarged heart, compatible with CHF. Some interstitial lung edema may be present. No other change or new acute process was seen. MTDD
[2016-12-20] MEDS ORDERED: Warfarin 2 MG Tab PO SCH (16:00)
[2016-12-20] MEDS: Gabapentin 100 MG Cap PO SCH (20:27)
[2016-12-20] MEDS: Aspirin 81 MG Tab.EC PO SCH (20:27)
[2016-12-20] MEDS: traZODone 50 MG Tab PO SCH (20:27)
[2016-12-20] MEDS: Latanoprost 0.005% Ophth Soln 2.5 ML Bottle EYEBOTH SCH (20:28)
[2016-12-20] MEDS: Insulin Detemir 100 Units/ML 3 ML Pen SUBCUT SCH (20:44)
[2016-12-20] MEDS ORDERED: Insulin Aspart 100 Units/ML 3 ML Pen SUBCUT ONE (20:58)
[2016-12-21] MEDS: Pantoprazole 40 MG Tab.CR PO SCH (05:01)
[2016-12-21] MEDS: Levothyroxine 112 MCG Tab PO SCH (05:01)
[2016-12-21] MEDS: Albuterol/Ipratropium 3.0-0.5 MG/3 ML Neb Soln NEB SCH (07:45)
[2016-12-21] MEDS: Furosemide 80 MG Tab PO SCH (07:59)
[2016-12-21] MEDS: Potassium Chloride 20 MEQ Tab.ER PO SCH (08:00)
[2016-12-21] MEDS: Metolazone 2.5 MG Tab PO SCH (08:00)
[2016-12-21] MEDS: Citalopram 20 MG Tab PO SCH (08:00)
[2016-12-21] MEDS: Folic Acid/Vitamin B Complex With C Cap PO SCH (08:01)
[2016-12-21] MEDS: Allopurinol 100 MG Tab PO SCH (08:01)
[2016-12-21] MEDS: Simvastatin 20 MG Tab PO SCH (08:01)
[2016-12-21] MEDS: amLODIPine 5 MG Tab PO SCH (08:01)
[2016-12-21] MEDS: Lutein/Minerals/Vitamin C/Vitamin E Acetate Cap PO SCH (08:01)
[2016-12-21] MEDS: Ferrous Sulfate 325 MG Tab PO SCH (08:01)
[2016-12-21] MEDS: Insulin Aspart 100 Units/ML 3 ML Pen SUBCUT SCH (08:08)
--- NOTE | 2016-12-21 08:11 | PCM.PN ---
- General Info Date of Service: 12/21/16 Admission Dx/Problem (Free Text): Patient states she is doing much better today. She denies shortness of breath, cough, fevers, chills. - Patient Data Vitals - Most Recent: Last Vital Signs Temp 97.8 F 12/21/16 05:00 Pulse 64 12/21/16 07:48 Resp 16 12/21/16 05:00 BP 125/84 12/21/16 05:00 Pulse Ox 98 12/21/16 07:48 Weight - Most Recent: 185 lb 14.4 oz I&O - Last 24 Hours: Intake & Output 12/20/16 12/21/16 12/21/16 22:59 06:59 14:59 Intake Total 300 100 Output Total 500 1850 Balance -200 -1750 Lab Results Last 24 Hours: Laboratory Results - last 24 hr 12/20/16 12/20/16 12/20/16 Range/Units 06:40 11:47 16:58 WBC 4.9 (4.5-12.0) X10-3/uL RBC 4.50 (3.23-5.20) x10(6)uL Hgb 10.4 L (11.5-15.5) g/dL Hct 32.3 (30.0-51.3) % MCV 71.8 L (80-96) fL MCH 23.0 L (27.7-33.6) pg MCHC 32.1 L (32.2-35.4) g/dL RDW 22.5 H (11.5-15.5) % Plt Count 214 (125-369) X10(3)uL MPV 8.9 (7.4-10.4) fL Add Manual Diff Yes Neutrophils % (Manual) 92 H (46-82) % Lymphocytes % (Manual) 6 L (13-37) % Monocytes % (Manual) 2 L (4-12) % Hypochromasia Few Poikilocytosis Few Anisocytosis Moderate H Microcytosis Moderate H PT (8.7-11.1) INR (0.89-1.13) Sodium (135-145) mmol/L Potassium (3.5-5.3) mmol/L Chloride (100-110) mmol/L Carbon Dioxide (23-29) mmol/L BUN (8-23) mg/dL Creatinine (0.6-1.3) mg/dL Est Cr Clr Drug Dosing mL/min Estimated GFR (MDRD) (>60) BUN/Creatinine Ratio (9-20) Glucose (80-116) mg/dL POC Glucose 356 H 368 H (80-116) mg/dL Calcium (8.6-10.2) mg/dL 12/20/16 12/21/16 12/21/16 Range/Units 20:42 06:20 06:20 WBC 6.3 (4.5-12.0) X10-3/uL RBC 4.62 (3.23-5.20) x10(6)uL Hgb 10.3 L (11.5-15.5) g/dL Hct 32.9 (30.0-51.3) % MCV 71.4 L (80-96) fL MCH 22.3 L (27.7-33.6) pg MCHC 31.3 L (32.2-35.4) g/dL RDW 23.1 H (11.5-15.5) % Plt Count 223 (125-369) X10(3)uL MPV 9.0 (7.4-10.4) fL Add Manual Diff Yes Neutrophils % (Manual) 86 H (46-82) % Lymphocytes % (Manual) 5 L (13-37) % Monocytes % (Manual) 9 (4-12) % Hypochromasia Few Poikilocytosis Anisocytosis Moderate H Microcytosis Few PT 32.6 H (8.7-11.1) INR 3.16 H (0.89-1.13) Sodium (135-145) mmol/L Potassium (3.5-5.3) mmol/L Chloride (100-110) mmol/L Carbon Dioxide (23-29) mmol/L BUN (8-23) mg/dL Creatinine (0.6-1.3) mg/dL Est Cr Clr Drug Dosing mL/min Estimated GFR (MDRD) (>60) BUN/Creatinine Ratio (9-20) Glucose (80-116) mg/dL POC Glucose 415 H* (80-116) mg/dL Calcium (8.6-10.2) mg/dL 12/21/16 Range/Units 06:20 WBC (4.5-12.0) X10-3/uL RBC (3.23-5.20) x10(6)uL Hgb (11.5-15.5) g/dL Hct (30.0-51.3) % MCV (80-96) fL MCH (27.7-33.6) pg MCHC (32.2-35.4) g/dL RDW (11.5-15.5) % Plt Count (125-369) X10(3)uL MPV (7.4-10.4) fL Add Manual Diff Neutrophils % (Manual) (46-82) % Lymphocytes % (Manual) (13-37) % Monocytes % (Manual) (4-12) % Hypochromasia Poikilocytosis Anisocytosis Microcytosis PT (8.7-11.1) INR (0.89-1.13) Sodium 135 (135-145) mmol/L Potassium 3.2 L (3.5-5.3) mmol/L Chloride 95 L (100-110) mmol/L Carbon Dioxide 31 H (23-29) mmol/L BUN 102 H (8-23) mg/dL Creatinine 1.5 H (0.6-1.3) mg/dL Est Cr Clr Drug Dosing 25.40 mL/min Estimated GFR (MDRD) 33 L (>60) BUN/Creatinine Ratio 68.0 H (9-20) Glucose 225 H D (80-116) mg/dL POC Glucose (80-116) mg/dL Calcium 9.2 (8.6-10.2) mg/dL Karri Results Last 24 Hours: Microbiology 12/15/16 10:25 Aerobic Blood Culture - Final Blood - Venous - Lab Draw NO GROWTH AFTER 5 DAYS Anaerobic Blood Culture - Final NO GROWTH AFTER 5 DAYS 12/15/16 10:15 Aerobic Blood Culture - Final Blood - Venous NO GROWTH AFTER 5 DAYS Anaerobic Blood Culture - Final NO GROWTH AFTER 5 DAYS Med Orders - Current: Current Medications Acetaminophen (Tylenol Extra Strength) 500 mg PO Q4H PRN PRN Reason: Pain Albuterol/Ipratropium (Duoneb 3.0-0.5 Mg/3 Ml) 3 ml NEB QIDRT [facility] Last Admin: 12/21/16 07:45 Dose: 3 ml Allopurinol (Zyloprim) 100 mg PO DAILY [facility] Last Admin: 12/20/16 08:10 Dose: 100 mg Amlodipine Besylate (Norvasc) 5 mg PO DAILY [facility] Last Admin: 12/20/16 08:09 Dose: 5 mg Artificial Tears (Liquitears 1.4% Ophth Soln) 0 ml EYEBOTH QID PRN PRN Reason: Dry Eyes Aspirin (Halfprin) 81 mg PO BEDTIME [facility] Last Admin: 12/20/16 20:27 Dose: 81 mg Calcitriol (Rocaltrol) 0.25 mcg PO DAILY [facility] Last Admin: 12/20/16 08:09 Dose: 0.25 mcg Citalopram Hydrobromide (Celexa) 20 mg PO DAILY [facility] Last Admin: 12/20/16 08:09 Dose: 20 mg Dextrose (Glutose 15) 15 gm PO Q1H PRN PRN Reason: low blood sugar Ergocalciferol (Vitamin D2) 50,000 units PO Q30D [facility] Ferrous Sulfate (Ferrous Sulfate) 325 mg PO DAILY [facility] Last Admin: 12/20/16 08:09 Dose: 325 mg Furosemide (Lasix) 80 mg PO BIDDIURETIC [facility] Last Admin: 12/20/16 15:01 Dose: 80 mg Gabapentin (Neurontin) 100 mg PO BEDTIME [facility] Last Admin: 12/20/16 20:27 Dose: 100 mg Ceftriaxone Sodium 1,000 mg/ (Sodium Chloride) 50 mls @ 100 mls/hr IV Q24H [facility] Last Admin: 12/20/16 10:20 Dose: 100 mls/hr Sodium Chloride (Normal Saline) 250 mls @ 0 mls/hr IV ASDIRECTED [facility] PRN Reason: KVO Insulin Aspart (Novolog) 0 unit SUBCUT TIDMEALS [facility] PRN Reason: Protocol Last Admin: 12/20/16 17:37 Dose: 15 units Insulin Detemir (Levemir) 25 unit SUBCUT BEDTIME [facility] Last Admin: 12/20/16 20:44 Dose: 25 units Latanoprost (Xalatan 0.005% Ophth Soln) 0 ml EYEBOTH BEDTIME [facility] Last Admin: 12/20/16 20:28 Dose: 1 drop Levothyroxine Sodium (Levothyroxine) 112 mcg PO DAILY@0600 [facility] Last Admin: 12/21/16 05:01 Dose: 112 mcg Metolazone (Zaroxolyn) 2.5 mg PO DAILY@0800 [facility] Last Admin: 12/20/16 08:08 Dose: 2.5 mg Multivit/Ca Carb/B Cmplx/FA/Prenat (Renal Caps Softgel) 1 cap PO DAILY [facility] Last Admin: 12/20/16 08:09 Dose: 1 cap Pantoprazole Sodium (Protonix) 40 mg PO 0600 [facility] Last Admin: 12/21/16 05:01 Dose: 40 mg Potassium Chloride (Klor-Con M20) 20 meq PO TID [facility] Last Admin: 12/20/16 20:27 Dose: 20 meq Simvastatin (Zocor) 20 mg PO DAILY [facility] Last Admin: 12/20/16 08:10 Dose: 20 mg Sodium Chloride (Saline Flush) 10 ml FLUSH ASDIRECTED PRN PRN Reason: Keep Vein Open Last Admin: 12/20/16 08:46 Dose: 10 ml Trazodone HCl (Trazodone) 50 mg PO BEDTIME [facility] Last Admin: 12/20/16 20:27 Dose: 50 mg Vit C/Vit E/Zinc/Copper/Lutein (Ocuvite Lutein) 1 each PO DAILY [facility] Last Admin: 12/20/16 08:09 Dose: 1 each Warfarin Sodium (Coumadin) 2 mg PO MO [facility] Last Admin: 12/20/16 15:54 Dose: 2 mg Warfarin Sodium (Coumadin) 4 mg PO SUTUWETHFRSA [facility] Last Admin: 12/19/16 16:02 Dose: 4 mg Warfarin Sodium (Coumadin Sliding Scale) 1 each PO ASDIRECTED [facility] Discontinued Medications Albuterol (Proventil Neb Soln) 2.5 mg INH Q4H PRN PRN Reason: SHORTNESS OF BREATH Albuterol (Proventil Neb Soln) Confirm Administered Dose 2.5 mg .ROUTE .STK-MED ONE Stop: 12/15/16 13:13 Last Admin: 12/15/16 13:18 Dose: 2.5 mg Albuterol (Proventil Neb Soln) 2.5 mg INH Q4H PRN PRN Reason: SHORTNESS OF BREATH Last Admin: 12/17/16 04:25 Dose: 2.5 mg Albuterol/Ipratropium (Duoneb 3.0-0.5 Mg/3 Ml) 3 ml NEB ONETIME ONE Stop: 12/15/16 07:30 Last Admin: 12/15/16 07:41 Dose: 3 ml Bimatoprost (Lumigan 0.01% Ophth Soln) 0 ml EYEBOTH BEDTIME [facility] Last Admin: 12/15/16 20:18 Dose: Not Given Citalopram Hydrobromide (Celexa) 10 mg PO DAILY [facility] Last Admin: 12/16/16 08:41 Dose: 10 mg Furosemide (Lasix) 20 mg IVPUSH NOW ONE Stop: 12/15/16 09:10 Last Admin: 12/15/16 09:16 Dose: 20 mg Furosemide (Lasix) 20 mg IVPUSH ONETIME ONE Stop: 12/19/16 08:59 Last Admin: 12/19/16 10:16 Dose: Not Given Furosemide (Lasix) 40 mg IVPUSH NOW ONE Stop: 12/19/16 12:01 Last Admin: 12/19/16 13:56 Dose: 40 mg Azithromycin 500 mg/ Sodium (Chloride) 250 mls @ 250 mls/hr IV Q24H [facility] Last Admin: 12/18/16 13:01 Dose: 250 mls/hr Sodium Chloride (Normal Saline) 250 mls @ 100 mls/hr IV ASDIRECTED [facility] Last Admin: 12/19/16 13:48 Dose: 100 mls/hr Sodium Chloride (Normal Saline) 250 mls @ 100 mls/hr IV ASDIRECTED [facility] Insulin Aspart (Novolog) 0 unit SUBCUT ONETIME ONE Stop: 12/15/16 21:44 Last Admin: 12/15/16 21:58 Dose: 10 units Insulin Aspart (Novolog) 0 unit SUBCUT ONETIME ONE Stop: 12/16/16 01:35 Last Admin: 12/16/16 01:52 Dose: 20 units Insulin Aspart (Novolog) 15 unit SUBCUT ONETIME ONE Stop: 12/17/16 18:36 Last Admin: 12/17/16 19:08 Dose: 15 units Insulin Aspart (Novolog) 15 unit SUBCUT ONETIME ONE Stop: 12/17/16 21:52 Last Admin: 12/17/16 22:27 Dose: 15 units Insulin Aspart (Novolog) 20 unit SUBCUT ONETIME ONE Stop: 12/18/16 17:01 Last Admin: 12/18/16 17:17 Dose: 20 units Insulin Aspart (Novolog) 10 unit SUBCUT ONETIME ONE Stop: 12/18/16 22:16 Last Admin: 12/18/16 22:29 Dose: 10 units Insulin Aspart (Novolog) 10 unit SUBCUT ASDIRECTED ONE Stop: 12/19/16 20:01 Last Admin: 12/19/16 20:13 Dose: 10 units Insulin Aspart (Novolog) 12 unit SUBCUT ONETIME ONE Stop: 12/20/16 20:59 Last Admin: 12/20/16 21:16 Dose: 12 units Levothyroxine Sodium (Levothyroxine) 112 mcg PO ACBREAKFAST [facility] Last Admin: 12/15/16 12:08 Dose: 112 mcg Levothyroxine Sodium (Levothyroxine) 112 mcg PO ACBREAKFAST [facility] Methylprednisolone Sodium Succinate (Solu-Medrol) 125 mg IVPUSH ONETIME ONE Stop: 12/15/16 07:31 Last Admin: 12/15/16 07:43 Dose: 125 mg Methylprednisolone Sodium Succinate (Solu-Medrol) Confirm Administered Dose 125 mg .ROUTE .STK-MED ONE Stop: 12/15/16 07:38 Last Admin: 12/15/16 07:43 Dose: Not Given Methylprednisolone Sodium Succinate (Solu-Medrol) 125 mg IVPUSH Q8H [facility] Last Admin: 12/19/16 08:04 Dose: 125 mg Methylprednisolone Sodium Succinate (Solu-Medrol) 125 mg IVPUSH Q12H [facility] Methylprednisolone Sodium Succinate (Solu-Medrol) 125 mg IVPUSH Q12H [facility] Last Admin: 12/20/16 08:46 Dose: 125 mg Potassium Chloride (Klor-Con M20) 20 meq PO TID [facility] Sodium Chloride (Saline Flush) 10 ml FLUSH ASDIRECTED PRN PRN Reason: Keep Vein Open Last Admin: 12/15/16 13:30 Dose: 10 ml - Exam General: Alert, Oriented Lungs: Normal Respiratory Effort, Decreased Breath Sounds, Crackles (Mild) Cardiovascular: Regular Rate, Irregular Rhythm - Problem List & Annotations (1) Pneumonia SNOMED Code(s): 033288753 Code(s): J18.9 - PNEUMONIA, UNSPECIFIED ORGANISM Status: Acute Current Visit: Yes Qualifiers: Pneumonia type: due to unspecified organism Laterality: bilateral (2) Palliative care patient SNOMED Code(s): 666188602 Code(s): Z51.5 - ENCOUNTER FOR PALLIATIVE CARE Status: Acute Current Visit: Yes (3) CHF (congestive heart failure) SNOMED Code(s): 64896109 Code(s): I50.9 - HEART FAILURE, UNSPECIFIED Status: Chronic Current Visit : Yes Qualifiers: Congestive heart failure type: unspecified congestive heart failure type Congestive heart failure chronicity: chronic Qualified Code(s): I50.9 - Heart failure, unspecified (4) Anticoagulated on warfarin SNOMED Code(s): 72311080, 800217768 Code(s): Z79.01 - CORRECTION (CURRENT) USE OF ANTICOAGULANTS Status: Chronic Priority: Low Current Visit: No (5) Chronic a-fib SNOMED Code(s): 152970715 Code(s): I48.2 - CHRONIC ATRIAL FIBRILLATION Status: Chronic Current Visit: No (6) Anemia in chronic kidney disease (CKD) SNOMED Code(s): 171061288 Code(s): N18.9 - CHRONIC KIDNEY DISEASE, UNSPECIFIED; D63.1 - ANEMIA IN CHRONIC KIDNEY DISEASE Status: Chronic Priority: Low Current Visit: No (7) Carotid artery bruit SNOMED Code(s): 540701230, 538362078 Code(s): R09.89 - OTH SYMPTOMS AND SIGNS INVOLVING THE CIRC AND RESP SYSTEMS Status: Acute Current Visit: Yes (8) DM2 (diabetes mellitus, type 2) SNOMED Code(s): 65675627 Code(s): E11.9 - TYPE 2 DIABETES MELLITUS WITHOUT COMPLICATIONS Status: Acute Current Visit: Yes Qualifiers: Diabetes mellitus complication status: without complication Diabetes mellitus meterman insulin use: with penitentiary use Qualified Code(s): E11.9 - Type 2 diabetes mellitus without complications; Z79.4 - [employer] (current) use of insulin - Problem List Review Problem List Initiated/Reviewed/Updated: Yes - My Orders Last 24 Hours: My Active Orders 12/20/16 09:05 Convert IV to Saline Lock [OM.PC] Routine 12/20/16 10:00 Sodium Chloride 0.9% [Normal Saline] 250 ml IV ASDIRECTED 12/20/16 16:00 Warfarin [Coumadin] 2 mg PO MO 12/26/16 08:00 Ergocalciferol (Vitamin D2) [Vitamin D2] 50,000 units PO Q30D - Assessment Assessment:: Patient improving. Transfer to swing bed on patient's own medications plus oral antibiotics. - Plan Plan:: 1. Chest x-ray today 2. DC Solu-Medrol 3. DC IV fluids and saline lock IV. 4. Continue to monitor blood sugars.
[2016-12-21 08:25] VITALS: BP 135/72
--- NOTE | 2016-12-21 08:45 | PCM.DCSUM1 ---
Discharge Summary - Hospital Course Free Text/Narrative:: Hospital course-patient was admitted and placed on Rocephin and Zithromax IV. O2 was used and albuterol nebulizers. Patient slowly improved. She was on Coumadin which is managed by pharmacy. And she did have a little anemia was given 2 units of RBCs. She was given Solu-Medrol when she first came in and later on one other time. Blood sugars when up to 400-500. She was controlled by sliding scale insulin and her long-acting insulin. Patient slowly improved. PT/ OT worked with her and she could use more strengthening, ambulation and coordination work. Brief History: Is a 81-year-old female patient started feeling short of breath yesterday. By 3 AM she was really short of breath and came in to the ER. She states she did have some orthopnea. She coughed once when she was here and felt better afterwards. She's felt some chills and fevers. She has a history of CHF. She states she checks her weights every day and they've been constant. At 177 pounds. She does not have any ankle swelling. She denies chest pain. She has no history of COPD. Although she smoked years ago. - Discharge Data Discharge Date: 12/21/16 Discharge Disposition: DC/Tfer W/I Hosp To Swing 61 Condition: Good - Discharge Diagnosis/Problem(s) (1) Pneumonia SNOMED Code(s): 550950640 ICD Code: J18.9 - PNEUMONIA, UNSPECIFIED ORGANISM Status: Acute Current Visit: Yes Qualifiers: Pneumonia type: due to unspecified organism Laterality: bilateral (2) Palliative care patient SNOMED Code(s): 047873260 ICD Code: Z51.5 - ENCOUNTER FOR PALLIATIVE CARE Status: Acute Current Visit: Yes (3) CHF (congestive heart failure) SNOMED Code(s): 82846940 ICD Code: I50.9 - HEART FAILURE, UNSPECIFIED Status: Chronic Current Visit: Yes Qualifiers: Congestive heart failure type: unspecified congestive heart failure type Congestive heart failure chronicity: chronic Qualified Code(s): I50.9 - Heart failure, unspecified (4) Anticoagulated on warfarin SNOMED Code(s): 55450888, 360567992 ICD Code: Z79.01 - HALF-WAY (CURRENT) USE OF ANTICOAGULANTS Status: Chronic Priority: Low Current Visit: No (5) Chronic a-fib SNOMED Code(s): 140948739 ICD Code: I48.2 - CHRONIC ATRIAL FIBRILLATION Status: Chronic Current Visit: No (6) Anemia in chronic kidney disease (CKD) SNOMED Code(s): 464431791 ICD Code: N18.9 - CHRONIC KIDNEY DISEASE, UNSPECIFIED; D63.1 - ANEMIA IN CHRONIC KIDNEY DISEASE Status: Chronic Priority: Low Current Visit: No (7) Carotid artery bruit SNOMED Code(s): 962682003, 498099816 ICD Code: R09.89 - OTH SYMPTOMS AND SIGNS INVOLVING THE CIRC AND RESP SYSTEMS Status: Acute Current Visit: Yes (8) DM2 (diabetes mellitus, type 2) SNOMED Code(s): 13264971 ICD Code: E11.9 - TYPE 2 DIABETES MELLITUS WITHOUT COMPLICATIONS Status: Acute Current Visit: Yes Qualifiers: Diabetes mellitus complication status: without complication Diabetes mellitus meterman insulin use: with meterman use Qualified Code(s): E11.9 - Type 2 diabetes mellitus without complications; Z79.4 - terminal carman (current) use of insulin - Patient Summary/Data Consults: Consultations 12/15/16 10:00 Consult to Respiratory Therapy [Respiratory Care Assess and Treatment] [CONS] Routine Comment: Physician Instructions: Reason for Consult: Pneumonia, COPD, CHF 12/15/16 17:49 Consult to Occupational Therapy [OT Evaluation and Treatment] [CONS] Routine Please Evaluate and Treat. OT Reason for Consult: Strengthening This query below is only for informational purposes and is not editable. Admission Diagnosis/Problem: Pneumonia Consult to Physical Therapy [PT Evaluation and Treatment] [CONS] Routine Please Evaluate and Treat. PT Reason for Consult: Strengthening This query below is only for informational purposes and is not editable. Admission Diagnosis/Problem: Pneumonia - Patient Instructions Diet: Diabetic Diet Activity: As Tolerated Driving: Do Not Drive Showering/Bathing: May Shower Other/Special Instructions: 1. Transfer to swing bed with PT/OT plus oral antibiotics. - Discharge Plan Home Medications: Home Meds Calcitriol [Rocaltrol] 0.25 mcg PO DAILY 06/24/15 [History] Gabapentin [Neurontin] 100 mg PO BEDTIME 06/24/15 [History] Polyvinyl Alcohol/Povidone [Artificial Tears Drops] 1 drop EYEBOTH QID PRN 06/23 [History] Acetaminophen [Tylenol Extra Strength] 500 mg PO Q4H PRN 09/01/15 [History] Aspirin [Adult Low Dose Aspirin EC] 81 mg PO BEDTIME 09/01/15 [History] Citalopram Hydrobromide [Celexa] 10 mg PO DAILY 09/01/15 [History] Dextrose [Glucose] 12 gram PO Q1H PRN 09/01/15 [History] Ergocalciferol (Vitamin D2) [Vitamin D2] 50,000 units PO Q30D 09/01/15 [History] Insulin Glarg,Human.Rec.Analog [Lantus Solostar] 25 unit SUBCUT BEDTIME [History] Multivit-Min/FA/Lutein/Zeaxant [Macular Vitamin Tablet] 1 tab PO DAILY 09/01/15 [History] Omeprazole 40 mg PO ACBREAKFAST 09/01/15 [History] Simvastatin [Zocor] 20 mg PO DAILY 09/01/15 [History] Vit B Cmplx NO3/Fa/C/Biot/Zinc [Nephplex Rx] 1 tab PO DAILY 09/01/15 [History] amLODIPine [Norvasc] 5 mg PO DAILY 09/01/15 [History] traZODone 50 mg PO BEDTIME 09/01/15 [History] Metolazone 2.5 mg PO BID 09/02/15 [History] Acetaminophen [Tylenol] 650 mg PO Q4H PRN #0 tablet 09/03/15 [Rx] Allopurinol [Zyloprim] 100 mg PO DAILY #90 tablet 09/03/15 [Rx] Furosemide 80 mg PO BID #40 tablet 09/03/15 [Rx] Bimatoprost [Lumigan 0.01% Ophth Soln] 1 drop EYEBOTH BEDTIME 12/15/16 [History] Ferrous Sulfate 325 mg PO DAILY 12/15/16 [History] Insulin Aspart [Novolog Flexpen] 15 unit SQ TIDMEALS 12/15/16 [History] Levothyroxine 112 mcg PO ACBREAKFAST 12/15/16 [History] Potassium Chloride [Klor-Con M20] 20 meq PO TID 12/15/16 [History] Warfarin [Coumadin] 2 mg PO MO 12/15/16 [History] Warfarin [Coumadin] 4 mg PO SUTUWETHFRSA 12/15/16 [History] Forms: ED Department Discharge Referrals: Bobby Cat MD [Primary Care Provider] - - Discharge Summary/Plan Comment DC Time >30 min.: No - Patient Data Vitals - Most Recent: Last Vital Signs Temp 98.2 F 12/21/16 08:00 Pulse 88 12/21/16 08:00 Resp 20 12/21/16 08:00 BP 135/76 12/21/16 08:01 Pulse Ox 95 12/21/16 08:00 Weight - Most Recent: 185 lb 14.4 oz I&O - Last 24 hours: Intake & Output 12/20/16 12/21/16 12/21/16 22:59 06:59 14:59 Intake Total 300 100 Output Total 500 1850 Balance -200 -1750 Lab Results - Last 24 hrs: Laboratory Results - last 24 hr 12/20/16 12/20/16 12/20/16 Range/Units 06:40 11:47 16:58 WBC (4.5-12.0) X10-3/uL RBC (3.23-5.20) x10(6)uL Hgb (11.5-15.5) g/dL Hct (30.0-51.3) % MCV (80-96) fL MCH (27.7-33.6) pg MCHC (32.2-35.4) g/dL RDW (11.5-15.5) % Plt Count (125-369) X10(3)uL MPV (7.4-10.4) fL Add Manual Diff Neutrophils % (Manual) 92 H (46-82) % Lymphocytes % (Manual) 6 L (13-37) % Monocytes % (Manual) 2 L (4-12) % Hypochromasia Few Poikilocytosis Few Anisocytosis Moderate H Microcytosis Moderate H PT (8.7-11.1) INR (0.89-1.13) Sodium (135-145) mmol/L Potassium (3.5-5.3) mmol/L Chloride (100-110) mmol/L Carbon Dioxide (23-29) mmol/L BUN (8-23) mg/dL Creatinine (0.6-1.3) mg/dL Est Cr Clr Drug Dosing mL/min Estimated GFR (MDRD) (>60) BUN/Creatinine Ratio (9-20) Glucose (80-116) mg/dL POC Glucose 356 H 368 H (80-116) mg/dL Calcium (8.6-10.2) mg/dL 12/20/16 12/21/16 12/21/16 Range/Units 20:42 06:20 06:20 WBC 6.3 (4.5-12.0) X10-3/uL RBC 4.62 (3.23-5.20) x10(6)uL Hgb 10.3 L (11.5-15.5) g/dL Hct 32.9 (30.0-51.3) % MCV 71.4 L (80-96) fL MCH 22.3 L (27.7-33.6) pg MCHC 31.3 L (32.2-35.4) g/dL RDW 23.1 H (11.5-15.5) % Plt Count 223 (125-369) X10(3)uL MPV 9.0 (7.4-10.4) fL Add Manual Diff Yes Neutrophils % (Manual) 86 H (46-82) % Lymphocytes % (Manual) 5 L (13-37) % Monocytes % (Manual) 9 (4-12) % Hypochromasia Few Poikilocytosis Anisocytosis Moderate H Microcytosis Few PT 32.6 H (8.7-11.1) INR 3.16 H (0.89-1.13) Sodium (135-145) mmol/L Potassium (3.5-5.3) mmol/L Chloride (100-110) mmol/L Carbon Dioxide (23-29) mmol/L BUN (8-23) mg/dL Creatinine (0.6-1.3) mg/dL Est Cr Clr Drug Dosing mL/min Estimated GFR (MDRD) (>60) BUN/Creatinine Ratio (9-20) Glucose (80-116) mg/dL POC Glucose 415 H* (80-116) mg/dL Calcium (8.6-10.2) mg/dL 12/21/16 Range/Units 06:20 WBC (4.5-12.0) X10-3/uL RBC (3.23-5.20) x10(6)uL Hgb (11.5-15.5) g/dL Hct (30.0-51.3) % MCV (80-96) fL MCH (27.7-33.6) pg MCHC (32.2-35.4) g/dL RDW (11.5-15.5) % Plt Count (125-369) X10(3)uL MPV (7.4-10.4) fL Add Manual Diff Neutrophils % (Manual) (46-82) % Lymphocytes % (Manual) (13-37) % Monocytes % (Manual) (4-12) % Hypochromasia Poikilocytosis Anisocytosis Microcytosis PT (8.7-11.1) INR (0.89-1.13) Sodium 135 (135-145) mmol/L Potassium 3.2 L (3.5-5.3) mmol/L Chloride 95 L (100-110) mmol/L Carbon Dioxide 31 H (23-29) mmol/L BUN 102 H (8-23) mg/dL Creatinine 1.5 H (0.6-1.3) mg/dL Est Cr Clr Drug Dosing 25.40 mL/min Estimated GFR (MDRD) 33 L (>60) BUN/Creatinine Ratio 68.0 H (9-20) Glucose 225 H D (80-116) mg/dL POC Glucose (80-116) mg/dL Calcium 9.2 (8.6-10.2) mg/dL [facility] Results - Last 24 hrs: Microbiology 12/15/16 10:25 Aerobic Blood Culture - Final Blood - Venous - Lab Draw NO GROWTH AFTER 5 DAYS Anaerobic Blood Culture - Final NO GROWTH AFTER 5 DAYS 12/15/16 10:15 Aerobic Blood Culture - Final Blood - Venous NO GROWTH AFTER 5 DAYS Anaerobic Blood Culture - Final NO GROWTH AFTER 5 DAYS Med Orders - Current: Current Medications Acetaminophen (Tylenol Extra Strength) 500 mg PO Q4H PRN PRN Reason: Pain Albuterol/Ipratropium (Duoneb 3.0-0.5 Mg/3 Ml) 3 ml NEB QIDRT [facility] Last Admin: 12/21/16 07:45 Dose: 3 ml Allopurinol (Zyloprim) 100 mg PO DAILY [facility] Last Admin: 12/21/16 08:01 Dose: 100 mg Amlodipine Besylate (Norvasc) 5 mg PO DAILY [facility] Last Admin: 12/21/16 08:01 Dose: 5 mg Artificial Tears (Liquitears 1.4% Ophth Soln) 0 ml EYEBOTH QID PRN PRN Reason: Dry Eyes Aspirin (Halfprin) 81 mg PO BEDTIME [facility] Last Admin: 12/20/16 20:27 Dose: 81 mg Calcitriol (Rocaltrol) 0.25 mcg PO DAILY [facility] Last Admin: 12/20/16 08:09 Dose: 0.25 mcg Citalopram Hydrobromide (Celexa) 20 mg PO DAILY [facility] Last Admin: 12/21/16 08:00 Dose: 20 mg Dextrose (Glutose 15) 15 gm PO Q1H PRN PRN Reason: low blood sugar Ergocalciferol (Vitamin D2) 50,000 units PO Q30D [facility] Ferrous Sulfate (Ferrous Sulfate) 325 mg PO DAILY [facility] Last Admin: 12/21/16 08:01 Dose: 325 mg Furosemide (Lasix) 80 mg PO BIDDIURETIC [facility] Last Admin: 12/21/16 07:59 Dose: 80 mg Gabapentin (Neurontin) 100 mg PO BEDTIME [facility] Last Admin: 12/20/16 20:27 Dose: 100 mg Ceftriaxone Sodium 1,000 mg/ (Sodium Chloride) 50 mls @ 100 mls/hr IV Q24H [facility] Last Admin: 12/20/16 10:20 Dose: 100 mls/hr Sodium Chloride (Normal Saline) 250 mls @ 0 mls/hr IV ASDIRECTED [facility] PRN Reason: KVO Insulin Aspart (Novolog) 0 unit SUBCUT TIDMEALS [facility] PRN Reason: Protocol Last Admin: 12/21/16 08:08 Dose: 6 units Insulin Detemir (Levemir) 25 unit SUBCUT BEDTIME [facility] Last Admin: 12/20/16 20:44 Dose: 25 units Latanoprost (Xalatan 0.005% Ophth Soln) 0 ml EYEBOTH BEDTIME [facility] Last Admin: 12/20/16 20:28 Dose: 1 drop Levothyroxine Sodium (Levothyroxine) 112 mcg PO DAILY@0600 [facility] Last Admin: 12/21/16 05:01 Dose: 112 mcg Metolazone (Zaroxolyn) 2.5 mg PO DAILY@0800 [facility] Last Admin: 12/21/16 08:00 Dose: 2.5 mg Multivit/Ca Carb/B Cmplx/FA/Prenat (Renal Caps Softgel) 1 cap PO DAILY [facility] Last Admin: 12/21/16 08:01 Dose: 1 cap Pantoprazole Sodium (Protonix) 40 mg PO 0600 [facility] Last Admin: 12/21/16 05:01 Dose: 40 mg Potassium Chloride (Klor-Con M20) 20 meq PO TID [facility] Last Admin: 12/21/16 08:00 Dose: 20 meq Simvastatin (Zocor) 20 mg PO DAILY [facility] Last Admin: 12/21/16 08:01 Dose: 20 mg Sodium Chloride (Saline Flush) 10 ml FLUSH ASDIRECTED PRN PRN Reason: Keep Vein Open Last Admin: 12/20/16 08:46 Dose: 10 ml Trazodone HCl (Trazodone) 50 mg PO BEDTIME [facility] Last Admin: 12/20/16 20:27 Dose: 50 mg Vit C/Vit E/Zinc/Copper/Lutein (Ocuvite Lutein) 1 each PO DAILY [facility] Last Admin: 12/21/16 08:01 Dose: 1 each Warfarin Sodium (Coumadin) 2 mg PO MO [facility] Last Admin: 12/20/16 15:54 Dose: 2 mg Warfarin Sodium (Coumadin) 4 mg PO SUTUWETHFRSA [facility] Last Admin: 12/19/16 16:02 Dose: 4 mg Warfarin Sodium (Coumadin Sliding Scale) 1 each PO ASDIRECTED [facility] Discontinued Medications Albuterol (Proventil Neb Soln) 2.5 mg INH Q4H PRN PRN Reason: SHORTNESS OF BREATH Albuterol (Proventil Neb Soln) Confirm Administered Dose 2.5 mg .ROUTE .STK-MED ONE Stop: 12/15/16 13:13 Last Admin: 12/15/16 13:18 Dose: 2.5 mg Albuterol (Proventil Neb Soln) 2.5 mg INH Q4H PRN PRN Reason: SHORTNESS OF BREATH Last Admin: 12/17/16 04:25 Dose: 2.5 mg Albuterol/Ipratropium (Duoneb 3.0-0.5 Mg/3 Ml) 3 ml NEB ONETIME ONE Stop: 12/15/16 07:30 Last Admin: 12/15/16 07:41 Dose: 3 ml Bimatoprost (Lumigan 0.01% Ophth Soln) 0 ml EYEBOTH BEDTIME [facility] Last Admin: 12/15/16 20:18 Dose: Not Given Citalopram Hydrobromide (Celexa) 10 mg PO DAILY [facility] Last Admin: 12/16/16 08:41 Dose: 10 mg Furosemide (Lasix) 20 mg IVPUSH NOW ONE Stop: 12/15/16 09:10 Last Admin: 12/15/16 09:16 Dose: 20 mg Furosemide (Lasix) 20 mg IVPUSH ONETIME ONE Stop: 12/19/16 08:59 Last Admin: 12/19/16 10:16 Dose: Not Given Furosemide (Lasix) 40 mg IVPUSH NOW ONE Stop: 12/19/16 12:01 Last Admin: 12/19/16 13:56 Dose: 40 mg Azithromycin 500 mg/ Sodium (Chloride) 250 mls @ 250 mls/hr IV Q24H [facility] Last Admin: 12/18/16 13:01 Dose: 250 mls/hr Sodium Chloride (Normal Saline) 250 mls @ 100 mls/hr IV ASDIRECTED [facility] Last Admin: 12/19/16 13:48 Dose: 100 mls/hr Sodium Chloride (Normal Saline) 250 mls @ 100 mls/hr IV ASDIRECTED [facility] Insulin Aspart (Novolog) 0 unit SUBCUT ONETIME ONE Stop: 12/15/16 21:44 Last Admin: 12/15/16 21:58 Dose: 10 units Insulin Aspart (Novolog) 0 unit SUBCUT ONETIME ONE Stop: 12/16/16 01:35 Last Admin: 12/16/16 01:52 Dose: 20 units Insulin Aspart (Novolog) 15 unit SUBCUT ONETIME ONE Stop: 12/17/16 18:36 Last Admin: 12/17/16 19:08 Dose: 15 units Insulin Aspart (Novolog) 15 unit SUBCUT ONETIME ONE Stop: 12/17/16 21:52 Last Admin: 12/17/16 22:27 Dose: 15 units Insulin Aspart (Novolog) 20 unit SUBCUT ONETIME ONE Stop: 12/18/16 17:01 Last Admin: 12/18/16 17:17 Dose: 20 units Insulin Aspart (Novolog) 10 unit SUBCUT ONETIME ONE Stop: 12/18/16 22:16 Last Admin: 12/18/16 22:29 Dose: 10 units Insulin Aspart (Novolog) 10 unit SUBCUT ASDIRECTED ONE Stop: 12/19/16 20:01 Last Admin: 12/19/16 20:13 Dose: 10 units Insulin Aspart (Novolog) 12 unit SUBCUT ONETIME ONE Stop: 12/20/16 20:59 Last Admin: 12/20/16 21:16 Dose: 12 units Levothyroxine Sodium (Levothyroxine) 112 mcg PO ACBREAKFAST [facility] Last Admin: 12/15/16 12:08 Dose: 112 mcg Levothyroxine Sodium (Levothyroxine) 112 mcg PO ACBREAKFAST [facility] Methylprednisolone Sodium Succinate (Solu-Medrol) 125 mg IVPUSH ONETIME ONE Stop: 12/15/16 07:31 Last Admin: 12/15/16 07:43 Dose: 125 mg Methylprednisolone Sodium Succinate (Solu-Medrol) Confirm Administered Dose 125 mg .ROUTE .STK-MED ONE Stop: 12/15/16 07:38 Last Admin: 12/15/16 07:43 Dose: Not Given Methylprednisolone Sodium Succinate (Solu-Medrol) 125 mg IVPUSH Q8H [facility] Last Admin: 12/19/16 08:04 Dose: 125 mg Methylprednisolone Sodium Succinate (Solu-Medrol) 125 mg IVPUSH Q12H [facility] Methylprednisolone Sodium Succinate (Solu-Medrol) 125 mg IVPUSH Q12H [facility] Last Admin: 12/20/16 08:46 Dose: 125 mg Potassium Chloride (Klor-Con M20) 20 meq PO TID [facility] Sodium Chloride (Saline Flush) 10 ml FLUSH ASDIRECTED PRN PRN Reason: Keep Vein Open Last Admin: 12/15/16 13:30 Dose: 10 ml *Q Meaningful Use (DIS) - VTE *Q VTE Criteria *Q: - Stroke *Q Stroke Criteria *Q: - AMI *Q AMI Criteria *Q:
[2016-12-26] MEDS ORDERED: Ergocalciferol (Vitamin D2) 50,000 Unit Cap PO SCH (08:00)
== END 2016-12-21 08:45 | disposition swing bed (61) | DRG 194 ==
LOC: FB.ED 06:16 → FB.MS 09:38
PROVIDERS: ADMIT Family Medicine; ATTEND Family Medicine
PROC: 30233N1 Transfusion of Nonautologous Red Blood Cells into Peripheral Vein, Percutaneous Approach (ICD-10-PCS; principal; 2016-12-19)
DX: J18.9 Pneumonia, unspecified organism (principal); J44.1 Chronic obstructive pulmonary disease with (acute) exacerbation; I13.0 Hypertensive heart and chronic kidney disease with heart failure and stage 1 through stage 4 chronic kidney disease, or unspecified chronic kidney disease; D63.1 Anemia in chronic kidney disease; I50.9 Heart failure, unspecified; I48.2 Chronic atrial fibrillation; Z79.01 Long term (current) use of anticoagulants; E11.22 Type 2 diabetes mellitus with diabetic chronic kidney disease; N18.9 Chronic kidney disease, unspecified; E03.9 Hypothyroidism, unspecified; Z87.891 Personal history of nicotine dependence; Z51.5 Encounter for palliative care; R09.89 Other specified symptoms and signs involving the circulatory and respiratory systems; Z79.4 Long term (current) use of insulin; R06.02 Shortness of breath; F41.9 Anxiety disorder, unspecified; E66.01 Morbid (severe) obesity due to excess calories; Z68.30 Body mass index [BMI] 30.0-30.9, adult; I25.10 Atherosclerotic heart disease of native coronary artery without angina pectoris; E78.00 Pure hypercholesterolemia, unspecified; I25.2 Old myocardial infarction; Z95.1 Presence of aortocoronary bypass graft; Z86.73 Personal history of transient ischemic attack (TIA), and cerebral infarction without residual deficits; H40.9 Unspecified glaucoma; Z88.1 Allergy status to other antibiotic agents; Z88.5 Allergy status to narcotic agent; Z88.0 Allergy status to penicillin; Z88.2 Allergy status to sulfonamides; Z88.8 Allergy status to other drugs, medicaments and biological substances
CPT/HCPCS: 36415; 71010; 80053; 81001; 83880; 84484; 85025; 85610; 93005; 94664; 96374; 96375; 99285; J1940; J2930; J7050 ×3; J7620; 36430; 71020; 80048; 82947; 82962; 86850; 86900; 86901; 86920; 86922; 87040; 93306; 94150; 94640-76; 97110-GP; 97116-GP; 97161-GP; 97166-GO; 97530-GO-KX; 97535-GO; 99284; A9270-GY; J0456; J0696; P9016

== ENCOUNTER 2016-12-21 08:45 | Inpatient (IN) | payer MEDICARE, BC ==
[2016-12-21] MEDS ORDERED: Acetaminophen 500 MG Tab PO PRN (09:56)
[2016-12-21] MEDS ORDERED: Acetaminophen 325 MG Tab PO PRN (09:56)
[2016-12-21] MEDS ORDERED: Polyvinyl Alcohol 1.4% Ophth Soln 15 ML Bottle EYEBOTH PRN (10:30)
[2016-12-21] MEDS ORDERED: Glucose Gel 15 GM in 37.5 GM Tube PO PRN (11:00)
[2016-12-21] MEDS ORDERED: Warfarin Sliding Scale PO SCH (11:00)
[2016-12-21] MEDS: Albuterol/Ipratropium 3.0-0.5 MG/3 ML Neb Soln NEB SCH ×3 (11:17→21:23)
[2016-12-21] MEDS: Cephalexin 500 MG Cap PO SCH ×4 (11:39→21:22)
[2016-12-21] MEDS: Azithromycin 250 MG Tab PO SCH (11:39)
[2016-12-21] MEDS: Metolazone 2.5 MG Tab PO SCH (12:59)
[2016-12-21] MEDS: Insulin Aspart 100 Units/ML 3 ML Pen SUBCUT SCH ×2 (13:01→17:54)
[2016-12-21] MEDS ORDERED: Warfarin 4 MG Tab PO SCH (13:15)
[2016-12-21] MEDS: Furosemide 80 MG Tab PO SCH (14:54)
[2016-12-21] MEDS: Potassium Chloride 20 MEQ Tab.ER PO SCH ×2 (14:54→21:22)
[2016-12-21] MEDS ORDERED: Warfarin 2 MG Tab PO ONE (16:00)
[2016-12-21] MEDS ORDERED: Latanoprost 0.005% Ophth Soln 2.5 ML Bottle EYEBOTH SCH (21:00)
[2016-12-21] MEDS: Gabapentin 100 MG Cap PO SCH (21:22)
[2016-12-21] MEDS: traZODone 50 MG Tab PO SCH (21:22)
[2016-12-21] MEDS: Latanoprost 0.005% Ophth Soln 2.5 ML Bottle EYEBOTH SCH (21:22)
[2016-12-21] MEDS: Aspirin 81 MG Tab.EC PO SCH (21:22)
[2016-12-21] MEDS: Insulin Detemir 100 Units/ML 3 ML Pen SUBCUT SCH (21:23)
[2016-12-22] MEDS: Levothyroxine 112 MCG Tab PO SCH (06:37)
[2016-12-22] MEDS: Pantoprazole 40 MG Tab.CR PO SCH (06:38)
[2016-12-22] MEDS: Albuterol/Ipratropium 3.0-0.5 MG/3 ML Neb Soln NEB SCH ×4 (07:32→20:50)
[2016-12-22] MEDS: Metolazone 2.5 MG Tab PO SCH ×2 (08:16→12:37)
[2016-12-22] MEDS: Lutein/Minerals/Vitamin C/Vitamin E Acetate Cap PO SCH (08:16)
[2016-12-22] MEDS: Potassium Chloride 20 MEQ Tab.ER PO SCH ×3 (08:16→20:51)
[2016-12-22] MEDS: Allopurinol 100 MG Tab PO SCH (08:16)
[2016-12-22] MEDS: Cephalexin 500 MG Cap PO SCH ×4 (08:16→20:51)
[2016-12-22] MEDS: Calcitriol 0.25 MCG Cap PO SCH (08:16)
[2016-12-22] MEDS: Azithromycin 250 MG Tab PO SCH (08:16)
[2016-12-22] MEDS: Folic Acid/Vitamin B Complex With C Cap PO SCH (08:16)
[2016-12-22] MEDS: Furosemide 80 MG Tab PO SCH ×2 (08:16→14:30)
[2016-12-22] MEDS: Citalopram 10 MG Tab PO SCH (08:16)
[2016-12-22] MEDS: Ferrous Sulfate 325 MG Tab PO SCH (08:16)
[2016-12-22] MEDS: amLODIPine 5 MG Tab PO SCH (08:17)
[2016-12-22] MEDS: Insulin Aspart 100 Units/ML 3 ML Pen SUBCUT SCH ×3 (08:19→18:47)
[2016-12-22] MEDS: Warfarin 4 MG Tab PO SCH (16:40)
[2016-12-22] MEDS: Aspirin 81 MG Tab.EC PO SCH (20:51)
[2016-12-22] MEDS: Gabapentin 100 MG Cap PO SCH (20:52)
[2016-12-22] MEDS: Latanoprost 0.005% Ophth Soln 2.5 ML Bottle EYEBOTH SCH (20:54)
[2016-12-22] MEDS: traZODone 50 MG Tab PO SCH (20:54)
[2016-12-22] MEDS: Simvastatin 20 MG Tab PO SCH (20:54)
[2016-12-22] MEDS: Insulin Detemir 100 Units/ML 3 ML Pen SUBCUT SCH (20:55)
[2016-12-23] MEDS: Pantoprazole 40 MG Tab.CR PO SCH (06:30)
[2016-12-23] MEDS: Levothyroxine 112 MCG Tab PO SCH (06:30)
[2016-12-23] MEDS: Albuterol/Ipratropium 3.0-0.5 MG/3 ML Neb Soln NEB SCH ×4 (07:22→20:27)
[2016-12-23] MEDS ORDERED: Insulin Detemir 100 Units/ML 3 ML Pen SUBCUT SCH (07:37)
[2016-12-23] MEDS: Insulin Aspart 100 Units/ML 3 ML Pen SUBCUT SCH ×2 (08:33→13:11)
[2016-12-23] MEDS: Furosemide 80 MG Tab PO SCH ×2 (08:34→13:43)
[2016-12-23] MEDS: Metolazone 2.5 MG Tab PO SCH ×2 (08:35→13:43)
[2016-12-23] MEDS: Citalopram 10 MG Tab PO SCH (08:35)
[2016-12-23] MEDS: Potassium Chloride 20 MEQ Tab.ER PO SCH ×3 (08:36→20:28)
[2016-12-23] MEDS: Cephalexin 500 MG Cap PO SCH ×4 (08:36→20:28)
[2016-12-23] MEDS: Ferrous Sulfate 325 MG Tab PO SCH (08:36)
[2016-12-23] MEDS: Folic Acid/Vitamin B Complex With C Cap PO SCH (08:38)
[2016-12-23] MEDS: Lutein/Minerals/Vitamin C/Vitamin E Acetate Cap PO SCH (08:38)
[2016-12-23] MEDS: amLODIPine 5 MG Tab PO SCH (08:38)
[2016-12-23] MEDS: Calcitriol 0.25 MCG Cap PO SCH (08:39)
[2016-12-23] MEDS: Allopurinol 100 MG Tab PO SCH (08:39)
[2016-12-23] MEDS: Azithromycin 250 MG Tab PO SCH (08:39)
[2016-12-23] MEDS: Warfarin 4 MG Tab PO SCH (16:09)
[2016-12-23] MEDS: Aspirin 81 MG Tab.EC PO SCH (20:28)
[2016-12-23] MEDS: Latanoprost 0.005% Ophth Soln 2.5 ML Bottle EYEBOTH SCH (20:30)
[2016-12-23] MEDS: Gabapentin 100 MG Cap PO SCH (20:30)
[2016-12-23] MEDS: traZODone 50 MG Tab PO SCH (20:32)
[2016-12-23] MEDS: Simvastatin 20 MG Tab PO SCH (20:33)
[2016-12-24] MEDS: Pantoprazole 40 MG Tab.CR PO SCH (05:40)
[2016-12-24] MEDS: Levothyroxine 112 MCG Tab PO SCH (05:40)
[2016-12-24] MEDS: Albuterol/Ipratropium 3.0-0.5 MG/3 ML Neb Soln NEB SCH ×4 (07:04→20:11)
[2016-12-24] MEDS: Furosemide 80 MG Tab PO SCH ×2 (08:20→13:19)
[2016-12-24] MEDS: Folic Acid/Vitamin B Complex With C Cap PO SCH (08:20)
[2016-12-24] MEDS: Ferrous Sulfate 325 MG Tab PO SCH (08:20)
[2016-12-24] MEDS: Lutein/Minerals/Vitamin C/Vitamin E Acetate Cap PO SCH (08:20)
[2016-12-24] MEDS: Allopurinol 100 MG Tab PO SCH (08:20)
[2016-12-24] MEDS: Cephalexin 500 MG Cap PO SCH ×4 (08:20→20:12)
[2016-12-24] MEDS: Metolazone 2.5 MG Tab PO SCH ×2 (08:21→13:20)
[2016-12-24] MEDS: Potassium Chloride 20 MEQ Tab.ER PO SCH ×3 (08:21→20:12)
[2016-12-24] MEDS: amLODIPine 5 MG Tab PO SCH (08:21)
[2016-12-24] MEDS: Calcitriol 0.25 MCG Cap PO SCH (08:21)
[2016-12-24] MEDS: Azithromycin 250 MG Tab PO SCH (08:21)
[2016-12-24] MEDS: Citalopram 10 MG Tab PO SCH (08:22)
[2016-12-24] MEDS: Warfarin 4 MG Tab PO SCH (16:44)
[2016-12-24] MEDS: Aspirin 81 MG Tab.EC PO SCH (20:11)
[2016-12-24] MEDS: Gabapentin 100 MG Cap PO SCH (20:12)
[2016-12-24] MEDS: Latanoprost 0.005% Ophth Soln 2.5 ML Bottle EYEBOTH SCH (20:13)
[2016-12-24] MEDS: traZODone 50 MG Tab PO SCH (20:13)
[2016-12-24] MEDS: Simvastatin 20 MG Tab PO SCH (20:13)
[2016-12-25] MEDS: Levothyroxine 112 MCG Tab PO SCH (06:07)
[2016-12-25] MEDS: Pantoprazole 40 MG Tab.CR PO SCH (06:08)
[2016-12-25] MEDS: Albuterol/Ipratropium 3.0-0.5 MG/3 ML Neb Soln NEB SCH ×2 (07:06→10:57)
[2016-12-25 09:17] VITALS: BP 147/43
[2016-12-25] MEDS: amLODIPine 5 MG Tab PO SCH (09:32)
[2016-12-25] MEDS: Metolazone 2.5 MG Tab PO SCH ×2 (09:32→13:00)
[2016-12-25] MEDS: Furosemide 80 MG Tab PO SCH ×2 (09:32→13:00)
[2016-12-25] MEDS: Citalopram 10 MG Tab PO SCH (09:32)
[2016-12-25] MEDS: Cephalexin 500 MG Cap PO SCH ×2 (09:32→13:00)
[2016-12-25] MEDS: Potassium Chloride 20 MEQ Tab.ER PO SCH ×2 (09:32→13:00)
[2016-12-25] MEDS: Ferrous Sulfate 325 MG Tab PO SCH (09:32)
[2016-12-25] MEDS: Folic Acid/Vitamin B Complex With C Cap PO SCH (09:33)
[2016-12-25] MEDS: Azithromycin 250 MG Tab PO SCH (09:33)
[2016-12-25] MEDS: Lutein/Minerals/Vitamin C/Vitamin E Acetate Cap PO SCH (09:33)
[2016-12-25] MEDS: Allopurinol 100 MG Tab PO SCH (09:33)
[2016-12-25] MEDS: Calcitriol 0.25 MCG Cap PO SCH (09:33)
[2016-12-26] MEDS ORDERED: Ergocalciferol (Vitamin D2) 50,000 Unit Cap PO SCH (09:00)
[2016-12-27] MEDS ORDERED: Warfarin 2 MG Tab PO SCH ×2 (13:12→16:00)
--- NOTE | 2016-12-28 08:51 | DISCH ---
DISCHARGE DATE: 12/25/2016 REASON FOR ADMISSION: 1. Physical strengthening and rehab. 2. Type 2 diabetes, uncontrolled. 3. Atrial fibrillation, chronic. 4. Congestive heart failure. 5. Pneumonia. 6. History of chronic obstructive pulmonary disease. 7. Anemia of chronic disease. 8. Chronic renal failure. 9. Hypothyroidism. 10.Depression and anxiety. 11.Gastroesophageal reflux disease. DISCHARGE DIAGNOSES: 1. Physical strengthening and rehab. 2. Type 2 diabetes, uncontrolled. 3. Atrial fibrillation, chronic. 4. Congestive heart failure. 5. Pneumonia. 6. History of chronic obstructive pulmonary disease. 7. Anemia of chronic disease. 8. Chronic renal failure. 9. Hypothyroidism. 10.Depression and anxiety. 11.Gastroesophageal reflux disease. BRIEF HISTORY AND HOSPITAL COURSE: This is an 81-year-old female, who came in with shortness of breath about 10 days ago, admitted for pneumonia bilateral, treated with Rocephin, azithromycin, later Solu-Medrol was added. She also has a history of CHF and gained over 10 pounds in the hospital and needed some Lasix IV initially and currently on 80 mg a day. She got 2 units of PRBCs because her hemoglobin had dropped down to 7.9. She was admitted because of generalized weakness and deconditioning for physical rehab into swing bed. She did well and is ready to go home today on 12/25/2016. Blood sugars were difficult to control throughout the hospital stay, going from very high to very low. As such I stopped all the insulin and started the patient on metformin despite her creatinine being 1.5. She will take 1000 mg b.i.d. until she sees her doctor on Tuesday. Other medications that she was sent home on will be: 1. DuoNeb to use q.6 hours p.r.n. 2. Acetaminophen 500 mg p.r.n. every 4 hours. 3. Allopurinol 100 mg a day. 4. Amlodipine 5 mg daily. 5. Aspirin 81 mg a day. 6. Lumigan and Xalatan eye drops to use as directed. 7. Calcitriol 0.25 mcg daily. 8. Citalopram 10 mg a day. 9. Vitamin D2 50,000 units every 30 days. 10. 325 mg of ferrous sulfate a day. 11. 80 mg b.i.d. of Lasix. 12. 100 mg daily of gabapentin. 13. 112 mcg daily of levothyroxine. 14. Metolazone 2.5 mg b.i.d. 15. One multivitamin a day. 16. Lutein one a day. 17. Omeprazole 40 mg a day. 18. Potassium chloride 20 mEq a day. 19. Zocor 40 mg a day. 20. Trazodone 50 mg at bedtime. 21. Folic acid one a day. 22. Zinc one a day. 23. Coumadin as directed. FOLLOWUP: She will see Dr. Cat on Tuesday or return to the ED with any worsening symptoms. She is going home with home health because she still needs some physical rehab, medication monitoring, and INR and blood sugar checks. I spent more than 35 minutes in the discharge of this patient. /[id number] GOYO/LILLIAM
== END 2016-12-25 13:40 | disposition home health service (06) | DRG 195 ==
LOC: FB.MS 08:45
PROVIDERS: ADMIT Family Medicine; ATTEND Family Medicine
DX: J18.9 Pneumonia, unspecified organism (principal); I50.9 Heart failure, unspecified; Z51.5 Encounter for palliative care; I48.2 Chronic atrial fibrillation; Z79.01 Long term (current) use of anticoagulants; N18.9 Chronic kidney disease, unspecified; D63.1 Anemia in chronic kidney disease; R09.89 Other specified symptoms and signs involving the circulatory and respiratory systems; E11.9 Type 2 diabetes mellitus without complications; Z79.4 Long term (current) use of insulin
CPT/HCPCS: 36415; 82947; 82962; 85610; 94150; 94640-76; 97110-GO; 97110-GP; 97116-GP; 97530-GO-KX; 97530-GP; 97535-GO; A9270-GY; J7620

== ENCOUNTER 2017-07-01 16:00 | Emergency (ER) | payer MEDICARE, BC ==
[2017-07-01 18:33] VITALS: BP 156/44
--- NOTE | 2017-07-04 11:21 | CT ---
INDICATION: Fall, and hit the face. CT HEAD WITHOUT CONTRAST: Serial contiguous 2.5 and 5-mm sections were obtained through the brain without contrast 07/01/2017 - no comparisons. Total Exam DLP = 949.36 mGy-cm. There is mild thickening of the lining of the left maxillary antrum. The maxillary sinuses were otherwise well aerated. The mastoid air cells were well aerated. No definite facial bone fracture was seen. There does appear to be soft tissue swelling overlying the left frontal bone compatible with injury in that area. No cranial fracture site was identified. Calcifications are extensive in the vertebral arteries, especially the right and the basilar artery and the internal carotid arteries as well. Lacunar infarcts are noted in the basal ganglia posteriorly, larger on the left than right and at the anterior left basal ganglia adjacent to the internal capsule anterior limb on the left. Periventricular decreased density in the white matter is compatible with mild microvascular disease. A bleeding site or hematoma was not identified. No shift of midline structures was identified, with only mild prominence of the ventricles, suggesting a mild degree of central atrophy mostly compatible with the patient's age. IMPRESSION: 1. No acute intracranial abnormality. 2. Cerebrovascular disease with heavy arterial calcifications and a mild degree of white matter changes compatible with microvascular disease, although other cause of leukoencephalopathy cannot be excluded. 3. Mild central atrophy. 4. Lacunar infarcts. 5. Thickening of the lining of the left maxillary antrum. MTDD
--- NOTE | 2017-07-04 11:28 | CT ---
INDICATION: Fall, hit the face. CT MAXILLOFACIAL: Spiral 1.25-mm axial images were obtained through the maxillofacial area with sagittal and coronal reconstructions, 07/01/2017 and were compared with 07/27/2016. Total Exam DLP = 552.29 mGy-cm. There is soft tissue deviation to the left of the nasal structures, which is a new finding compared with the previous study and may be posttraumatic. This should be correlated clinically. However, a nasal bone fracture site was not identified. No fracture in the maxillofacial area was identified. 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 Thickening of the lining of the left maxillary antrum is again seen, noted on the previous CT scan of the same date. It was not present on the previous examination of the maxillofacial area. Otherwise, the paranasal sinuses and the mastoid air cells appear to be well aerated. IMPRESSION: 1. Soft tissue deviation to the left of the nasal structures without a definite nasal bone fracture. 2. Thickening of the lining of the left maxillary antrum of questionable significance, could be related to a minimal sinusitis. 3. Degenerative changes, possibly posttraumatic at the temporomandibular joint on the right. MTDD
--- NOTE | 2017-07-05 10:45 | ER ---
DATE SEEN: 07/01/2017 TIME SEEN: The patient was seen at 1620 hours. HISTORY OF PRESENT ILLNESS: This 81-year-old woman fell while trying to walk on rough ground that had frozen ice chunks on the ground. As she stepped on one, she lost her balance and fell forward on her face. She was unable to diminish her fall by throwing her hands in front of her. It happened so fast. She has a hematoma on her left face and denies nasal bleeding. She has mild headache. Denies neck pain. Otherwise, denies compromise in her vision. She is on Coumadin for atrial fibrillation. PAST MEDICAL HISTORY: Significant for congestive heart failure, atrial fibrillation with anticoagulation, myocardial infarction, three-vessel CABG, hypertension, Parkinson-like dyskinesias, type 2 diabetes, hypothyroidism, carotid artery bruit and has carotid artery insufficiency. She was obese at one time; no longer is obese. Chronic kidney disease stage 3. FAMILY HISTORY: Significant family history of cancer of breast in sister, heart disease, leukemia. 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 MEDICATIONS: 1. Allopurinol. 2. DuoNeb. 3. Acetaminophen. 4. Lasix. 5. Vitamin D. 6. Citalopram. 7. Calcitriol. 8. Bimatoprost ophthalmic drops for glaucoma. 9. Aspirin. 10.Levothyroxine. 11.Latanoprost (Xalatan). 12.Gabapentin. 13.Potassium chloride. 14.Artificial Tears. 15.Omeprazole. 16.Metolazone. 17.Warfarin. 18.B-complex. 19.Zocor. 20.Trazodone. 21.Metformin. 22.Amlodipine. ALLERGIES: Cortisone, ciprofloxacin, fenofibrate, levofloxacin, lisinopril, morphine, niacin, penicillin, quinapril, sulfa, zolpidem. REVIEW OF SYSTEMS: She has a mild headache presently. Denies any new compromise in vision. CARDIOVASCULAR: She has carotid bruits otherwise in her neck. An aortic murmur. Does not have chest pain presently, and she is without chest pain history currently. GASTROINTESTINAL: No change in bowel, diarrhea, constipation, or blood in the stools. : Denies frequency, urgency, dysuria, or incontinence. MUSCULOSKELETAL: Mild arthritis in joints, but had rheumatoid arthritis. Decreased strength noted. She does not use a walker. EXTREMITIES: Edema. PSYCHIATRIC: Depression is stable. PHYSICAL EXAMINATION: VITAL SIGNS: Blood pressure 151/59, heart rate 61 and irregular, respirations 15, oxygen saturation 96%, and temperature is 36.5 degrees. 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 She did not come by ambulance. HEENT: She has a significant raccoon eye discoloration in the left infraorbital region. Had mild discomfort. Denies nasal bleed. Denies compromised vision. EXTREMITIES: Does not have any pain in upper or lower extremities. She is very pleasant and has decreased hearing. Physical exam fairly intact. Large ecchymotic area more inferiorly than superiorly with a 6 cm curvilinear upward concave laceration in the infraorbital rim and malar region, approximately 3 cm below the orbital rim. No crepitans noted. No step-offs noted. She had some mild discomfort with palpation of the soft-tissue structures. Zygoma is nontender. No crepitans. Hearing is decreased. TMs normal. Pharynx without abnormality. Nasal chambers without blood. NECK: She has systolic bruits bilaterally of the carotids. HEART: S1 and S2. There is a soft systolic murmur in the in the left aortic and right aortic spaces, second and third parasternal intercostal spaces. No heaves noted. No diastolic murmur noted. ABDOMEN: Soft, without tenderness. Chest wall is nontender. NEUROLOGIC: Deep tendon reflexes in upper and lower extremities of 1+. Cranial nerves 2 through 12 intact, oriented. The patient has one of the cranial nerves, hearing is decreased. Gait is appropriate. Muscle strength appropriate in upper and lower extremities. DIAGNOSTIC STUDIES: CAT scan of the head negative. CAT scan of the maxillofacial bones without fracture. No lab was performed. EKG was not performed. DIAGNOSES: 1. Concussion. 2. Fall with left facial laceration. 3. Contusion of the face without facial fracture. 4. Diabetes. 5. Anticoagulation for atrial fibrillation. 6. Atrial fibrillation. 7. Hypothyroidism. 8. Vitamin D deficiency. 9. Anemia of chronic kidney disease. 10.Chronic kidney disease. 11.Renal-induced hyperparathyroidism. 12.Coronary artery bypass with three-vessel graft. 13.Status post hysterectomy, appendectomy, and cholecystectomy. 14.Congestive heart failure with pedal edema. 15.Carotid artery, atherosclerotic changes with bruits. 16.Many allergies. 17.Glaucoma. 18.Chronic back pain. 19.Hypertension. 20.Depression. PROCEDURE: The patient was prepped and draped on the face. Liberally lavaged and taking a surgical sponge and then cleansed and then lavaged again. Then, once the surface was cleaned, facial block was performed, infraorbital nerve, also paranasal area and lateral trigeminal sensory nerve. Then 6 stitches of subcutaneous 5-0 Vicryl placed and 6 stitches of interrupted mattress 5-0 Ethilon placed in the dermis and one simple stitch placed to reapproximate the tissues. The patient tolerated the procedure well. PLAN: The patient dismissed to use Tylenol or ibuprofen. Follow up with her doctor in a week. To the ecchymosis, swelling of face, apply cold packs. Keep wound clean. I did not give her antibiotics. Use bacitracin daily to face. Also, she has a small rent of 1 cm in the left lower extremity, lower third anterior tibia region, this was cleaned and dressed. Bacitracin applied. The patient advised to apply bacitracin to her wounds daily, shower and cleanse and wash daily. She was also advised if she feels unsteady she should use her walker more frequently than she has been using in the past and avoid the icy sidewalks. /[id number] LEIGH ANN/LILLIAM
== END 2017-07-01 18:55 | disposition home or self-care (01) ==
LOC: FB.ED 16:00
DX: S06.0X9A Concussion with loss of consciousness of unspecified duration, initial encounter (principal); S01.81XA Laceration without foreign body of other part of head, initial encounter; I13.0 Hypertensive heart and chronic kidney disease with heart failure and stage 1 through stage 4 chronic kidney disease, or unspecified chronic kidney disease; I50.9 Heart failure, unspecified; I25.2 Old myocardial infarction; E11.22 Type 2 diabetes mellitus with diabetic chronic kidney disease; E03.9 Hypothyroidism, unspecified; N18.3 Chronic kidney disease, stage 3 (moderate); J44.9 Chronic obstructive pulmonary disease, unspecified; D63.1 Anemia in chronic kidney disease; I48.91 Unspecified atrial fibrillation; N25.81 Secondary hyperparathyroidism of renal origin; H40.9 Unspecified glaucoma; M54.9 Dorsalgia, unspecified; G89.29 Other chronic pain; F32.9 Major depressive disorder, single episode, unspecified; Z88.1 Allergy status to other antibiotic agents; Z88.0 Allergy status to penicillin; Z95.1 Presence of aortocoronary bypass graft; Z88.8 Allergy status to other drugs, medicaments and biological substances; Z88.2 Allergy status to sulfonamides; Z88.5 Allergy status to narcotic agent; W19.XXXA Unspecified fall, initial encounter
CPT/HCPCS: 12013; 70450; 70486; 99284